=== PATIENT | female | born 1955 | race Caucasian/White ===

== ENCOUNTER 2017-02-19 13:37 | Emergency (ER) | payer MEDICARE, OTHER ==
[~2017-02-19] VITALS: Ht 172.7 cm; Wt 159.2 kg
[~2017-02-19 13:37] MED LIST: ACET-868 PO; ARIP15TA8 PO; BENZ1TAB7 PO; CALC500T13 PO; DIGO250T PO; DIVA250T PO; FLUT1BLS IH; FURO-145 PO; HYDR-552 PO; INSU100V11 SQ; INSU100V7 SQ; MAGN400O6 PO; MAGN400T6 PO; MECL-102 PO; NITR100C6 PO; ONDA-25 PO; POTA40LI14 PO; SENN8.6T6 PO; SPIR50TA PO; ZOLP5TAB7 PO
--- NOTE | 2017-02-19 13:37 | NUR ---
bb cc for eval for cellulitis in perineal area. nad noted. pt aao x4, amb with steady gait. rr even and unlabored. vss. awaiting md for eval.
[2017-02-19] MEDS ORDERED: INSU100V7 SQ (14:10)
[2017-02-19] MEDS ORDERED: TRIA80CR12 TP (14:10)
[2017-02-19] MEDS ORDERED: ALLO300T2 PO (14:10)
[2017-02-19] MEDS ORDERED: IBUP-1955 PO (14:10)
[2017-02-19] MEDS ORDERED: DIVA500T7 PO (14:10)
[2017-02-19] MEDS ORDERED: INSU100V11 SQ (14:10)
[2017-02-19] MEDS ORDERED: BLOO-668 IN (14:10)
[2017-02-19] MEDS ORDERED: MENT113O4 TP (14:10)
--- NOTE | 2017-02-19 14:29 | NUR ---
CALLED , TRANSFERRED CALL TO
[2017-02-19 15:12] VITALS: BP 129/74
--- NOTE | 2017-02-19 15:12 | NUR ---
CALLED [facility] FOR TRANSPORT BACK TO [facility], ETA 1 HOUR
--- NOTE | 2017-02-19 15:42 | NUR ---
NEW ETA FOR [facility]PONSE [id number]
--- NOTE | 2017-02-19 17:45 | NUR ---
Patient discharged to home in stable condition. Written and verbal after care instructions given. Patient verbalizes understanding of instruction. ambulatory with steady gait. vss. no further complaints. leaving via ambulance.
== END 2017-02-19 15:12 | disposition home or self-care (01) ==
LOC: ER 13:39
DX: K61.0 Anal abscess (principal); I10 Essential (primary) hypertension; E11.9 Type 2 diabetes mellitus without complications; F32.9 Major depressive disorder, single episode, unspecified; Z88.8 Allergy status to other drugs, medicaments and biological substances
CPT/HCPCS: 99281; A4606; Z7502; Z7610

== ENCOUNTER 2017-07-14 18:35 | Inpatient (IN) | payer MEDICARE, OTHER ==
[~2017-07-14] VITALS: Ht 198.1 cm; Wt 164.7 kg
[~2017-07-14 18:35] MED LIST changes: +ALLO300T2 PO; +BLOO-668 IN; -DIVA250T PO; +DIVA500T7 PO; -HYDR-552 PO; +IBUP-1955 PO; -MAGN400O6 PO; +MENT113O4 TP; -NITR100C6 PO; -POTA40LI14 PO; +TRIA80CR12 TP
--- NOTE | 2017-07-14 19:00 | NUR ---
61 YO FEMALE BB AMBULANCE FROM [facility]. PT IS ALERT X 3, C/O ABSCESS TO R POPLITEAL AREA X 2 DAYS. PT ASSISTED TO ER BED1. PT PLACED ON PIANO TECHNICIAN. SKIN WARM AND DRY, RR EVEN AND UNLABORED. NOTED LOW SBP. MD NOTIFIED. AWAITING ORDERS FROM PROVIDER, WILL CONTINUE TO MONITOR
[2017-07-14] MEDS ORDERED: DIVA250T6 PO (19:17)
[2017-07-14] MEDS ORDERED: METF10002 PO (19:17)
[2017-07-14] MEDS ORDERED: ASPI-991 PO (19:17)
[2017-07-14] MEDS ORDERED: GEMF600T3 PO (19:17)
[2017-07-14] MEDS ORDERED: GLIP5TAB13 PO (19:17)
[2017-07-14] MEDS ORDERED: VALS40TA4 PO (19:17)
[2017-07-14 19:23] LABS: BASOPHILS # (AUTO) 0.1 /CMM (0.0-0.2); BASOPHILS % (AUTO) 1.4 % (0.0-2.0); EOSINOPHILS # (AUTO) 0.7 /CMM (0.0-0.7); EOSINOPHILS % (AUTO) 7.9 % (0.0-6.0); HEMATOCRIT 36 % (33-45); HEMOGLOBIN 11.8 g/dL (11.5-14.8); LYMPHOCYTES # (AUTO) 1.4 /CMM (0.8-4.8); LYMPHOCYTES % (AUTO) 16.1 % (20.0-44.0); MEAN CORPUSCULAR HEMOGLOBIN 32 PG (26.0-33.0); MEAN CORPUSCULAR HGB CONC 33 g/dl (31.0-36.0); MEAN CORPUSCULAR VOLUME 99 fL (82-100); MONOCYTES # (AUTO) 0.6 /CMM (0.1-1.30); MONOCYTES % (AUTO) 6.8 % (2.0-12.0); NEUTROPHILS # (AUTO) 5.6 /CMM (1.8-8.9); NEUTROPHILS % (AUTO) 67.8 % (43.0-81.0); PLATELET COUNT (AUTO) 249 /CMM (150-450); RED BLOOD CELL COUNT(AUTO) 3.66 MIL/uL (4.0-5.2); WHITE BLOOD COUNT (AUTO) 8.4 K/uL (4.3-11.0)
--- NOTE | 2017-07-14 19:24 | NUR ---
20G RIGHT AC IV STARED, BLOOD SAMPLE OBTAINED AND SENT TO LAB.
[2017-07-14 19:31] LABS: CALCIUM, SERUM 9.1 mg/dL (8.5-10.1); CARBON DIOXIDE 25 mmol/L (21-32); CHLORIDE 97 mmol/L (98-107); CREATININE 1.8 mg/dL (0.6-1.3); GLUCOSE 337 mg/dL (74-106); POTASSIUM 5.8 mmol/L (3.5-5.1); SODIUM SERUM 129 mmol/L (136-145); UREA NITROGEN, BLOOD 51 mg/dL (7-18)
[2017-07-14 19:35] LABS: INR 0.9 (0.87-1.13); PROTHROMBIN TIME 9.3 SECS (9.5-12.7)
[2017-07-14 19:37] LABS: ALANINE AMINOTRANSFERASE 51 U/L (12-78); ALBUMIN 3.2 g/dL (3.4-5.0); ALKALINE PHOSPHATASE 53 U/L (46-116); ASPARTATE AMINOTRANSFERASE 23 U/L (15-37); BILIRUBIN,DIRECT 0.1 mg/dL (0.0-0.2); BILIRUBIN,TOTAL 0.2 mg/dL (0.2-1.0); TOTAL PROTEIN, SERUM 6.5 g/dL (6.4-8.2)
[2017-07-14 19:39] LABS: TROPONIN I < 0.017 ng/mL (0.00-0.056)
[2017-07-14 20:00] VITALS: BP 113/60
[2017-07-14] MEDS ORDERED: IV NS 0.9% 1,000 ML BAG IV ONE (20:00)
[2017-07-14] MEDS ORDERED: VANCOMYCIN 1 GM in IV D5W 250 ML IV ONE (20:00)
[2017-07-14] MEDS ORDERED: INSULIN REGULAR, HUMAN 100 UNIT/ML 10 ML VIAL IV ONE (20:00)
[2017-07-14] MEDS ORDERED: LEVOFLOXACIN 500 MG /D5W 100ML 500 MG/100 ML PIGGYBACK IV ONE (20:00)
--- NOTE | 2017-07-14 20:01 | NUR ---
PATIENT WILL BE ADMITTED INTO [place] [address]-2.
[2017-07-14] MEDS ORDERED: LEVOFLOXACIN 500 MG /D5W 100ML 100 ML IV ONE (20:13)
[2017-07-14] MEDS ORDERED: INSULIN REGULAR, HUMAN 100 UNIT/ML 10 ML VIAL ONE (20:20)
[2017-07-14] MEDS ORDERED: ACETAMINOPHEN 325 MG TABLET PO PRN (20:30)
[2017-07-14] MEDS ORDERED: ZOLPIDEM TARTRATE 5 MG TABLET PO PRN (20:30)
[2017-07-14] MEDS ORDERED: ONDANSETRON HCL/PF 4 MG/2 ML VIAL IVP PRN (20:30)
[2017-07-14] MEDS ORDERED: HYDROCODONE/APAP 10/325MG 1 EA TABLET PO PRN (20:30)
[2017-07-14] MEDS ORDERED: HYDROCODONE/APAP 5/325MG 1 EACH TABLET PO PRN (20:30)
[2017-07-14] MEDS ORDERED: Z GUARD REMEDY 2 OZ OINT TP PRN (20:30)
[2017-07-14] MEDS ORDERED: MAGNESIUM HYDROXIDE 30 ML UDC PO PRN (20:30)
[2017-07-14] MEDS ORDERED: MAG HYDROX/AL HYDROX/SIMETH 30 ML UDC PO PRN (20:30)
--- NOTE | 2017-07-14 20:34 | NUR ---
fluids still infusing on admission. reassessment to be done by kenyetta llanes
--- NOTE | 2017-07-14 20:42 | NUR ---
report given to rn for staci
[2017-07-14] MEDS ORDERED: VANCOMYCIN 1 GM VIAL ONE (20:45)
[2017-07-14 20:48] LABS: APPEARANCE,URINE Clear (CLEAR); BILIRUBIN,URINE Negative (NEGATIVE); BLOOD, URINE Negative Ery/uL (NEGATIVE); COLOR,URINE Yellow (YELLOW); KETONES,URINE Negative (NEGATIVE); LEUKOCYTE ESTERASE ,URINE Negative (NEGATIVE); NITRITE, URINE Negative (NEGATIVE); PH,URINE 5.5 (5.0-8.0); PROTEIN,URINE Negative (NEGATIVE); UGLUCOSE 500 MG/DL mg/dL (NEGATIVE); UROBILINOGEN,URINE 0.2 EU/dL (0.2)
[2017-07-14 20:55] VITALS: BP 113/60
[2017-07-14] MEDS ORDERED: DEXTROSE 50%-WATER 50 ML DISP.SYRIN IV PRN (21:00)
--- NOTE | 2017-07-14 21:03 | NUR ---
transported pt to tele bed without incident
[2017-07-14] MEDS ORDERED: CEFTRIAXONE 1 G in IV D5W 50 ML IV SCH (21:30)
--- NOTE | 2017-07-14 21:55 | NUR ---
RN NOTES ADMITTED A 61 YEARS OLD, FEMALE PT FROM ER WITH PRIMARY DIAGNOSIS OF ACUTE RENAL FAILURE , HYPERKALEMIA AND HYPONATREMIA UNDER RICARDO ENG NP. PT ALERT AND ORIENTED X3, NO SOB, NOT IN DISTRESS, ON ROOM AIR AND TOLERATED WELL. ATTACHED TO TELE MONITOR WHICH READS SINUS RHYTHM WITH HEART RATE AT 98. DENIES ANY PAIN AND DISCOMFORT. SKIN AND BODY ASSESSMENT DONE WITH PICTURES TAKEN AND FILED IN THE CHART. SKIN CARE AND WOUND CARE DONE. IV ACCESS ON RIGHT AC WITH IV BOLUS OF NS INFUSING WELL. WILL INSERT MIDLINE ORDERED. BARRETO CATH INTACT WITH CLEAR URINE OUTPUT NOTED. KEPT PT CLEAN AND DRY. ALL NEEDS ATTENDED. KEPT BED IN THE LOWEST POSITION, LOCKED, SIDE RAILS UP X2, WITH CALL LIGHT WITH IN REACH. ALL ORDERS NOTED AND CARRIED OUT. WILL CONTINUE TO MONITOR PT.
[2017-07-14] MEDS: HEPARIN SODIUM, PORCINE 5000 UNITS/1 ML VIAL SQ SCH (22:15)
[2017-07-14] MEDS: BLOOD SUGAR DIAGNOSTIC 1 EACH STRIP IN SCH (22:17)
--- NOTE | 2017-07-14 22:17 | NUR ---
RN NOTES BLOOD SUGAR CHECKED 267 MG/DL, 6 UNITS REGULAR INSULIN GIVEN SUBCU.
[2017-07-14] MEDS: *INSULIN REGULAR(HUMULIN R)HUM 100 UNIT/ML VIAL SQ PRN (22:20)
[2017-07-14] MEDS: INSULIN DETEMIR 100 UNIT/ML CARTRIDGE SQ SCH (22:21)
[2017-07-14] MEDS ORDERED: CEFTRIAXONE 1 G VIAL ONE (22:22)
[2017-07-14] MEDS: ARIPIPRAZOLE 5 MG TABLET PO SCH (22:29)
[2017-07-15] VITALS: BP 118/64
[2017-07-15] MEDS: IV NS 0.9% 1,000 ML IV PRN ×2 (01:27→17:00)
[2017-07-15 04:00] VITALS: BP 129/59
[2017-07-15] MEDS: BLOOD SUGAR DIAGNOSTIC 1 EACH STRIP IN SCH ×4 (06:31→21:45)
[2017-07-15] MEDS: INSULIN REGULAR, HUMAN 100 UNIT/ML 3 ML VIAL SQ PRN ×2 (06:37→17:18)
--- NOTE | 2017-07-15 06:37 | NUR ---
RN NOTES BLOOD SUGAR CHECKED 226MG/DL, 8 UNITS REGULAR INSULIN GIVEN SUBCU.
[2017-07-15 06:40] LABS: BASOPHILS % (AUTO) 0.5 % (0.0-2.0); EOSINOPHILS # (AUTO) 0.6 /CMM (0.0-0.7); HEMATOCRIT 34 % (33-45); HEMOGLOBIN 11.1 g/dL (11.5-14.8); LYMPHOCYTES # (AUTO) 1.6 /CMM (0.8-4.8); LYMPHOCYTES % (AUTO) 20.3 % (20.0-44.0); MEAN CORPUSCULAR HEMOGLOBIN 33 PG (26.0-33.0); MEAN CORPUSCULAR HGB CONC 33 g/dl (31.0-36.0); MEAN CORPUSCULAR VOLUME 99 fL (82-100); MONOCYTES # (AUTO) 0.6 /CMM (0.1-1.30); MONOCYTES % (AUTO) 7.5 % (2.0-12.0); NEUTROPHILS # (AUTO) 5.2 /CMM (1.8-8.9); NEUTROPHILS % (AUTO) 63.7 % (43.0-81.0); PLATELET COUNT (AUTO) 198 /CMM (150-450); RDW COEFFICIENT OF VARIATION 13.8 (11.5-15.0); WHITE BLOOD COUNT (AUTO) 8.1 K/uL (4.3-11.0)
[2017-07-15 07:00] LABS: THYROID STIMULATING HORMONE 4.301 uIU/mL (0.358-3.74)
[2017-07-15 07:05] LABS: CALCIUM, SERUM 8.4 mg/dL (8.5-10.1); CREATININE 1.3 mg/dL (0.6-1.3); MAGNESIUM 2.2 mg/dL (1.8-2.4); PHOSPHORUS 3.5 mg/dL (2.5-4.9); POTASSIUM 5.3 mmol/L (3.5-5.1)
[2017-07-15 07:11] VITALS: BP 118/55
--- NOTE | 2017-07-15 07:30 | NUR ---
RN NOTES PT ASLEEP IN BED, BREATHING REGULAR AND UNLABORED, NO SIGNS OF DISTRESS AND DISCOMFORT NOTED. VITAL SIGNS STABLE, AFEBRILE. NO COMPLAIN OF PAIN, NO EPISODE OF NAUSEA AND VOMITING. NO DIARRHEA NOTED. ALL DUE MEDS GIVEN. SKIN CARE AND WOUND CARE DONE. OFF HEELS OFFLOADED. TURNED AND REPOSITION Q2H. ALL DUE MEDS GIVEN. ALL NEEDS MET. ENDORSED TO MORNING RN FOR CONTINUITY OF CARE.
--- NOTE | 2017-07-15 07:30 | NUR ---
environmental epidemiologist Initial Notes: Received patient resting in bed. Patient is alert oriented x3. Non-labored breathing noted. No signs of distress. Patient on Telemetry monitoring with sinus rhythm noted. Midline on right upper arm intact and patent. Call light within reach. Bed at lowest/locked position. Will continue to monitor.
[2017-07-15 08:00] VITALS: BP_SYST 110; BP_SYST 118; BP_DIAS 55
[2017-07-15] MEDS: GEMFIBROZIL 600 MG TABLET PO SCH ×3 (09:00→16:56)
[2017-07-15] MEDS ORDERED: ALLOPURINOL 100 MG TABLET PO SCH (09:00)
[2017-07-15] MEDS ORDERED: FUROSEMIDE 20 MG TABLET PO SCH (09:00)
[2017-07-15] MEDS: PANTOPRAZOLE 40 MG TABLET.DR PO SCH (09:17)
[2017-07-15] MEDS: DIVALPROEX SODIUM 250 MG TABLET.DR PO SCH ×3 (09:17→16:40)
[2017-07-15] MEDS: BENZTROPINE MESYLATE (1 MG) 1 MG TABLET PO SCH (09:18)
[2017-07-15] MEDS: MAGNESIUM OXIDE 400 MG TABLET PO SCH ×2 (09:18→16:40)
[2017-07-15] MEDS: ASPIRIN EC 81 MG TABLET.DR PO SCH (09:19)
[2017-07-15] MEDS: FLUTICASONE/VILANTEROL 1 EACH BLST.W.DEV IH SCH (09:20)
[2017-07-15] MEDS: HEPARIN SODIUM, PORCINE 5000 UNITS/1 ML VIAL SQ SCH ×2 (09:39→21:42)
--- NOTE | 2017-07-15 09:45 | NUR ---
cow washer Notes: Patient refused Lopid. Benefits and risks explained to patient. Medication offered to patient 3 times. Patient still refused.
[2017-07-15] MEDS: INSULIN DETEMIR 100 UNIT/ML CARTRIDGE SQ SCH ×2 (10:22→21:44)
--- NOTE | 2017-07-15 11:17 | NUR ---
WOUND CARE CONSULT: PT PRESENTS WITH MULTIPLE SKIN ISSUES, PRESENT ON ADMISSION. BARIMAX BED WITH ETS AIR ORDERED. ALL SKIN PROTECTION MEASURES IN PLACE AND DISCUSSED WITH NURSING STAFF. SPOKE WITH ALLIE CRAMER NP WHO WILL PLACE ALL WOUND ORDERS. DEFER TO SURGICAL TEAM FOR WOUND/SKIN TREATMENT PLAN. WILL SEE PRN. MARTINEZ IN AGREEMENT WITH PLAN OF CARE. Addendum: 07/15/17 at 1119 by REINALDO HUNT WNDNU Amended: Links added.
[2017-07-15] MEDS: DIGOXIN 0.25 MG TABLET PO SCH (12:14)
[2017-07-15] MEDS: *INSULIN REGULAR(HUMULIN R)HUM 100 UNIT/ML VIAL SQ PRN ×2 (12:30→21:45)
--- NOTE | 2017-07-15 13:48 | NUR ---
MS RN notes: Patient status changed to Med Surg per MD orders. Patient's bed changed to [facility] bed. Have waited for bed arrival to verify patient's weight. Bed zeroed and weight was calculated to 370.0 lbs.
[2017-07-15] MEDS: NYSTATIN/TRIAMCIN CREAM 15 GM TUBE TP SCH ×2 (14:11→16:40)
[2017-07-15 16:00] VITALS: BP 113/53
[2017-07-15 17:15] LABS: APPEARANCE,URINE CLEAR (CLEAR); BILIRUBIN,URINE NEGATIVE (NEGATIVE); BLOOD, URINE 1+ Ery/uL (NEGATIVE); COLOR,URINE YELLOW (YELLOW); KETONES,URINE NEGATIVE (NEGATIVE); LEUKOCYTE ESTERASE ,URINE TRACE (NEGATIVE); NITRITE, URINE NEGATIVE (NEGATIVE); PROTEIN,URINE NEGATIVE (NEGATIVE); UGLUCOSE 3+ mg/dL (NEGATIVE); UROBILINOGEN,URINE 0.2 EU/dL (0.2)
[2017-07-15 17:23] LABS: CREATININE, URINE 18.4 MG/DL (30.0-125.0); URINE TOTAL PROTEIN 10.6 mg/dL (0-11.9)
[2017-07-15 17:44] LABS: BACTERIA,URINE Few /HPF (None Seen); SQUAMOUS EPITHELIAL CELL,UR Few /HPF (None Seen); YEAST,URINE Rare /HPF (None Seen)
--- NOTE | 2017-07-15 19:40 | NUR ---
RN Notes: Patient resting in bed. Patient is alert oriented x3. Non-labored breathing noted. No signs of distress. Midline on right upper arm intact and patent. Call light within reach. Bed at lowest/locked position. Will continue to monitor. Endorsed to next shift.
--- NOTE | 2017-07-15 19:42 | NUR ---
MS/RN NOTES RECEIVED PT. LYING IN BED RESTING. PT. IS EASILY AROUSABLE TO NAME. BREATHING EVEN AND UNLABORED ON ROOM AIR. NO SOB, RESPIRATORY DISTRESS OR COMPLAINTS OF PAIN NOTED AT THIS TIME. PT. WITH RIGHT UPPER ARM MIDLINE PRESENT, PATENT AND INTACT ADMINISTERING TO PT. NS @ 75 ML/HR. PT. WITH BARRETO CATHETER PRESENT, PATENT AND INTACT DRAINING CLEAR YELLOW URINE. BED IN LOWEST POSITION, CALL LIGHT WITHIN REACH, SIDE RAILS UP X3, WILL CONTINUE TO MONITOR.
[2017-07-15 19:54] LABS: EOSINOPHIL,URINE Few
[2017-07-15 20:00] VITALS: BP 141/58
[2017-07-15] MEDS: CEFTRIAXONE 1 G in IV D5W 50 ML IV SCH (21:42)
[2017-07-15] MEDS: ARIPIPRAZOLE 5 MG TABLET PO SCH ×2 (21:45→21:56)
[2017-07-16 06:41] LABS: BASOPHILS % (AUTO) 0.5 % (0.0-2.0); EOSINOPHILS # (AUTO) 0.6 /CMM (0.0-0.7); EOSINOPHILS % (AUTO) 8.3 % (0.0-6.0); HEMATOCRIT 35 % (33-45); HEMOGLOBIN 11.6 g/dL (11.5-14.8); LYMPHOCYTES # (AUTO) 1.5 /CMM (0.8-4.8); LYMPHOCYTES % (AUTO) 19.2 % (20.0-44.0); MEAN CORPUSCULAR HEMOGLOBIN 33 PG (26.0-33.0); MEAN CORPUSCULAR HGB CONC 34 g/dl (31.0-36.0); MEAN CORPUSCULAR VOLUME 99 fL (82-100); MONOCYTES # (AUTO) 0.6 /CMM (0.1-1.30); MONOCYTES % (AUTO) 7.5 % (2.0-12.0); NEUTROPHILS % (AUTO) 64.5 % (43.0-81.0); PLATELET COUNT (AUTO) 211 /CMM (150-450); RDW COEFFICIENT OF VARIATION 13.6 (11.5-15.0); RED BLOOD CELL COUNT(AUTO) 3.47 MIL/uL (4.0-5.2); WHITE BLOOD COUNT (AUTO) 7.7 K/uL (4.3-11.0)
[2017-07-16] MEDS: INSULIN REGULAR, HUMAN 100 UNIT/ML 3 ML VIAL SQ PRN ×3 (06:48→17:26)
[2017-07-16] MEDS: BLOOD SUGAR DIAGNOSTIC 1 EACH STRIP IN SCH ×4 (06:49→20:52)
--- NOTE | 2017-07-16 06:56 | NUR ---
MS/RN NOTES PT. IS LYING IN BED. AWAKE, ALERT AND ORIENTED X3. BREATHING EVEN AND UNLABORED ON ROOM AIR. NO SOB, RESPIRATORY DISTRESS OR COMPLAINTS OF PAIN NOTED AT THIS TIME. NO S/S OF HYPO/HYPERGLYCEMIA NOTED. PT. WITH RIGHT UPPER ARM MIDLINE PRESENT, PATENT AND INTACT ADMINISTERING TO PT. NS @ 75 ML/HR. PT. WITH BARRETO CATHETER PRESENT, PATENT AND INTACT. EMPTIED 2400 ML CLEAR YELLOW URINE. ALL PT. NEEDS MET. PT. OFFLOADED. TURNED AND REPOSITIONED Q2H AND NEEDED. BED IN LOWEST POSITION, CALL LIGHT WITHIN REACH, SIDE RAILS UP X3, WILL ENDORSE TO DAYSHIFT NURSE FOR CONTINUITY OF CARE.
--- NOTE | 2017-07-16 07:15 | NUR ---
MS RN OPENING NOTES RECEIVED PT ASLEEP IN BED, EASILY AWAKENS. A/O X3. ABLE TO VERBALIZED NEEDS, NO C/O PAIN OR DISCOMFORTS VOICED AT THIS TIME. ON ROOM AIR, BREATHING EVEN AND UNLABORED. RIGHT UPPER ARM MIDLINE PATENT AND INTACT WITH NS @ 75 ML/HR INFUSING WELL. BARRETO IN PLACE AND ACTIVELY DRAINING CLEAR YELLOW URINE TO BEDSIDE DRAINAGE BAG. BED IN LOWEST POSITION AND LOCKED WITH SIDE-RAILS UP X2. CALL LIGHT WITHIN REACH. WILL MAINTAIN ALL SAFETY MEASURES AND WILL CONTINUE TO MONITOR PT ACCORDINGLY.
[2017-07-16 07:55] LABS: ALBUMIN 2.9 g/dL (3.4-5.0); BILIRUBIN,TOTAL 0.3 mg/dL (0.2-1.0); CALCIUM, SERUM 8.7 mg/dL (8.5-10.1); CREATININE 1.2 mg/dL (0.6-1.3); MAGNESIUM 2.1 mg/dL (1.8-2.4); PHOSPHORUS 3.2 mg/dL (2.5-4.9); POTASSIUM 4.9 mmol/L (3.5-5.1); TOTAL PROTEIN, SERUM 6.3 g/dL (6.4-8.2)
[2017-07-16 08:00] VITALS: BP 134/69
[2017-07-16] MEDS: PANTOPRAZOLE 40 MG TABLET.DR PO SCH (08:15)
[2017-07-16] MEDS: FLUTICASONE/VILANTEROL 1 EACH BLST.W.DEV IH SCH (08:57)
[2017-07-16] MEDS: DIVALPROEX SODIUM 250 MG TABLET.DR PO SCH ×3 (08:59→16:39)
[2017-07-16] MEDS: BENZTROPINE MESYLATE (1 MG) 1 MG TABLET PO SCH (08:59)
[2017-07-16] MEDS: GEMFIBROZIL 600 MG TABLET PO SCH ×2 (08:59→16:39)
[2017-07-16] MEDS: NYSTATIN/TRIAMCIN CREAM 15 GM TUBE TP SCH ×2 (09:00→16:40)
[2017-07-16] MEDS: MAGNESIUM OXIDE 400 MG TABLET PO SCH ×2 (09:00→16:39)
[2017-07-16] MEDS: ASPIRIN EC 81 MG TABLET.DR PO SCH (09:04)
[2017-07-16] MEDS: INSULIN DETEMIR 100 UNIT/ML CARTRIDGE SQ SCH ×2 (09:17→21:08)
[2017-07-16] MEDS: HEPARIN SODIUM, PORCINE 5000 UNITS/1 ML VIAL SQ SCH ×2 (09:20→21:02)
--- NOTE | 2017-07-16 12:03 | NUR ---
RN NOTES SEEN AND EVALUATED BY JARROD SMITH, INSULIN DETEMIR FLEXTOUCH INCREASED FROM 84UNITS TO 95UNITS Q12HRS. WILL CONTINUE TO MONITOR.
[2017-07-16] MEDS: DIGOXIN 0.25 MG TABLET PO SCH (12:09)
[2017-07-16 16:00] VITALS: BP 123/71
[2017-07-16 16:32] VITALS: BP 136/79
--- NOTE | 2017-07-16 18:54 | NUR ---
MS RN CLOSING NOTES PATIENT AWAKE AND RESTING IN BED. A/O X3, SAME ABLE TO COMMUNICATE VERBALLY. ON ROOM AIR, BREATHING EVEN AND UNLABORED. MIDLINE ON RIGHT UPPER ARM PATENT AND INTACT. TORRES IN PLACE AND ACTIVELY DRAINING CLEAR YELLOW URINE TO BEDSIDE DRAINAGE BAG. URINE OUTPUT THIS TOUR WAS 2450 ML, TORRES CARE DONE. HOB KEPT ELEVATED. MAINTAINED BED IN LOWEST POSITION AND LOCKED WITH SIDE-RAILS UP X2. CALL LIGHT WITHIN REACH. ALL SAFETY MEASURES KEPT IN PLACED. ALL NEEDS AND CARE ATTENDED WELL. WILL ENDORSED TO COOLER SERVICE SUPERVISOR NURSE FOR DYLLAN. Addendum: 07/16/17 at 1942 by GERA HOOD RN ms/rn opening notes Patient in hob elevated, alert, orientedx3. able to verbalize needs. no s/s of discomfort. provided fluids. requetsed for some juice. will monitor s/s of hyperglycemia.on torres, w/ urine output , .received reportf from am rn and discussed plan of care, bed in lock position, will continue to monitor.
[2017-07-16 20:00] VITALS: BP_SYST 139; BP_SYST 148; BP_DIAS 48; BP_DIAS 76
[2017-07-16] MEDS: *INSULIN REGULAR(HUMULIN R)HUM 100 UNIT/ML VIAL SQ PRN (20:45)
[2017-07-16] MEDS: CEFTRIAXONE 1 G in IV D5W 50 ML IV SCH (21:14)
[2017-07-16 21:17] VITALS: BP 148/76
[2017-07-16] MEDS: ARIPIPRAZOLE 5 MG TABLET PO SCH (21:25)
--- NOTE | 2017-07-17 06:12 | NUR ---
ms/rn closing notes Patient is alert, awake x3 able to verbalize needs. Attend to needs. Provide wound treatment on left hand cover w/ gauze and tape. No pain observed. No s/s of discomfort. Able to sleep 6 hours.will endorse to am rn for continuity of care.
[2017-07-17] MEDS: BLOOD SUGAR DIAGNOSTIC 1 EACH STRIP IN SCH ×3 (06:37→17:11)
[2017-07-17] MEDS: *INSULIN REGULAR(HUMULIN R)HUM 100 UNIT/ML VIAL SQ PRN (06:45)
[2017-07-17 07:17] LABS: BASOPHILS % (AUTO) 0.2 % (0.0-2.0); EOSINOPHILS # (AUTO) 0.6 /CMM (0.0-0.7); EOSINOPHILS % (AUTO) 7.8 % (0.0-6.0); HEMATOCRIT 34 % (33-45); HEMOGLOBIN 11.7 g/dL (11.5-14.8); LYMPHOCYTES # (AUTO) 1.2 /CMM (0.8-4.8); LYMPHOCYTES % (AUTO) 14.7 % (20.0-44.0); MEAN CORPUSCULAR HEMOGLOBIN 34 PG (26.0-33.0); MEAN CORPUSCULAR HGB CONC 34 g/dl (31.0-36.0); MEAN CORPUSCULAR VOLUME 99 fL (82-100); MONOCYTES # (AUTO) 0.6 /CMM (0.1-1.30); NEUTROPHILS # (AUTO) 5.7 /CMM (1.8-8.9); NEUTROPHILS % (AUTO) 70.3 % (43.0-81.0); PLATELET COUNT (AUTO) 213 /CMM (150-450); RDW COEFFICIENT OF VARIATION 13.8 (11.5-15.0); RED BLOOD CELL COUNT(AUTO) 3.49 MIL/uL (4.0-5.2); WHITE BLOOD COUNT (AUTO) 8.1 K/uL (4.3-11.0)
--- NOTE | 2017-07-17 07:18 | NUR ---
MS RN OPENING NOTES PATIENT RECEIVED AWAKE IN BED IN NO ACUTE SIGNS OF DISTRESS. A/O X3, NO C/O PAIN OR DISCOMFORTS VOICED AT THIS TIME. ON ROOM AIR, BREATHING EVEN AND UNLABORED. RIGHT UPPER ARM MIDLINE PATENT AND INTACT. BARRETO IN PLACE WITH POSITIVE YELLOW URINE NOTED AT BEDSIDE DRAINAGE BAG. BED IN LOWEST POSITION AND LOCKED WITH SIDE-RAILS UP X2. CALL LIGHT WITHIN REACH OF PT. WILL MAINTAIN ALL SAFETY MEASURES AND WILL CONTINUE TO MONITOR PT ACCORDINGLY.
[2017-07-17 07:58] LABS: CALCIUM, SERUM 8.9 mg/dL (8.5-10.1); CREATININE 1.1 mg/dL (0.6-1.3); MAGNESIUM 1.8 mg/dL (1.8-2.4); PHOSPHORUS 3.4 mg/dL (2.5-4.9); POTASSIUM 4.8 mmol/L (3.5-5.1)
[2017-07-17 08:00] VITALS: BP 129/68
[2017-07-17] MEDS: ASPIRIN EC 81 MG TABLET.DR PO SCH (08:29)
[2017-07-17] MEDS: BENZTROPINE MESYLATE (1 MG) 1 MG TABLET PO SCH (08:29)
[2017-07-17] MEDS: GEMFIBROZIL 600 MG TABLET PO SCH ×2 (08:29→16:11)
[2017-07-17] MEDS: DIVALPROEX SODIUM 250 MG TABLET.DR PO SCH ×3 (08:29→16:11)
[2017-07-17] MEDS: MAGNESIUM OXIDE 400 MG TABLET PO SCH ×2 (08:29→16:11)
[2017-07-17] MEDS: PANTOPRAZOLE 40 MG TABLET.DR PO SCH (08:29)
[2017-07-17] MEDS: NYSTATIN/TRIAMCIN CREAM 15 GM TUBE TP SCH ×2 (08:31→16:11)
[2017-07-17] MEDS: FLUTICASONE/VILANTEROL 1 EACH BLST.W.DEV IH SCH (08:33)
[2017-07-17] MEDS: HEPARIN SODIUM, PORCINE 5000 UNITS/1 ML VIAL SQ SCH (08:37)
[2017-07-17] MEDS: INSULIN DETEMIR 100 UNIT/ML CARTRIDGE SQ SCH (09:16)
[2017-07-17] MEDS ORDERED: LEVO750T21 PO (09:47)
[2017-07-17] MEDS ORDERED: INSU3INS6 SUBCUT (09:47)
[2017-07-17] MEDS ORDERED: CEFT1FRO2 IV (09:53)
--- NOTE | 2017-07-17 11:35 | NUR ---
RN NOTES PATIENT FOR DISCHARGE THIS AFTERNOON TO [facility]. REPORTS GIVEN TO THE EVALUATION ASSISTANT CARMEN AND REQUESTED TO FAX H AND P AND RESULTS OF MRSA AND C-DIFF RESULTS.
[2017-07-17] MEDS: DIGOXIN 0.25 MG TABLET PO SCH (12:02)
[2017-07-17] MEDS: INSULIN REGULAR, HUMAN 100 UNIT/ML 3 ML VIAL SQ PRN ×2 (12:14→17:12)
[2017-07-17] MEDS ORDERED: SULF1TAB48 PO (14:14)
[2017-07-17 16:00] VITALS: BP 130/70
--- NOTE | 2017-07-17 18:03 | NUR ---
SOLUTION ADVISOR NOTES PATIENT DISCHARGED TO [facility] LIVING IN STABLE CONDITION. LEFT UNIT @ 1800H ACCOMPANIED BY 4 EMT'S VIA [employer]. ALERT AND ORIENTED X 3 WITH NO C/O PAIN OR DISCOMFORTS DURING DISCHARGE. BARERTO CATHETER AND GUSTAVO MIDLINE REMOVED. V.S CHECKED AND RECORDED. BELONGINGS CHECKED, COUNTED AND SIGNED FORM. PHOTOS OF SKIN TAKEN AND FILED ON CHART. HEALTH TEACHINGS GIVEN AND VERBALIZED UNDERSTANDING. MD AND CHARGE NURSE AWARE OF DISCHARGE.
== END 2017-07-17 17:58 | DRG 682 ==
LOC: ER 18:36 → TELE 20:20 → MED 07-15 10:35
PROVIDERS: ADMIT Nurse Practitioner Acute Care; ATTEND Nurse Practitioner Acute Care
PROC: 05H533Z Insertion of Infusion Device into Right Subclavian Vein, Percutaneous Approach (ICD-10-PCS; principal; 2017-07-14)
DX: N17.0 Acute kidney failure with tubular necrosis (principal); I50.33 Acute on chronic diastolic (congestive) heart failure; J96.00 Acute respiratory failure, unspecified whether with hypoxia or hypercapnia; E44.0 Moderate protein-calorie malnutrition; E87.2 Acidosis; L03.115 Cellulitis of right lower limb; E11.40 Type 2 diabetes mellitus with diabetic neuropathy, unspecified; E11.65 Type 2 diabetes mellitus with hyperglycemia; Z68.43 Body mass index [BMI] 50.0-59.9, adult; N39.0 Urinary tract infection, site not specified; E87.1 Hypo-osmolality and hyponatremia; J98.11 Atelectasis; I50.32 Chronic diastolic (congestive) heart failure; E86.1 Hypovolemia; E66.01 Morbid (severe) obesity due to excess calories; B96.20 Unspecified Escherichia coli [E. coli] as the cause of diseases classified elsewhere; E78.1 Pure hyperglyceridemia; E78.5 Hyperlipidemia, unspecified; E87.5 Hyperkalemia; F31.9 Bipolar disorder, unspecified; I11.0 Hypertensive heart disease with heart failure; I70.0 Atherosclerosis of aorta; J44.9 Chronic obstructive pulmonary disease, unspecified; M10.9 Gout, unspecified; Z79.4 Long term (current) use of insulin; Z79.82 Long term (current) use of aspirin; Z79.84 Long term (current) use of oral hypoglycemic drugs; Z79.899 Other long term (current) drug therapy; Z82.49 Family history of ischemic heart disease and other diseases of the circulatory system; Z83.3 Family history of diabetes mellitus; Z85.42 Personal history of malignant neoplasm of other parts of uterus; Z87.891 Personal history of nicotine dependence; Z90.710 Acquired absence of both cervix and uterus; Z91.19 Patient's noncompliance with other medical treatment and regimen; Z88.1 Allergy status to other antibiotic agents; I35.0 Nonrheumatic aortic (valve) stenosis
CPT/HCPCS: 36415; 71010-TC; 80048-TC; 80053-TC; 80061-TC; 80076-TC; 80162-TC; 81000-TC; 82570-TC; 82962-TC; 83605-TC; 83735-TC; 84100-TC; 84155-TC; 84300-TC; 84443-TC; 84484-TC; 85025-TC; 85730-TC; 87040-TC; 87081-TC; 87086-TC; 87186-TC; 93307-TC; 93970-TC; 97110-TC; 97530-TC; A4606; A6402; A6403; J0696; J1644; J1815; J1956; J3370; J7030; J7060; Z7610

== ENCOUNTER 2017-10-05 19:10 | Emergency (ER) | payer MEDICARE, OTHER ==
[~2017-10-05] VITALS: Ht 167.6 cm; Wt 163.3 kg
[2017-10-05 19:10] VITALS: BP 125/58
[~2017-10-05 19:10] MED LIST changes: -ACET-868 PO; +ASPI-991 PO; -BLOO-668 IN; -CALC500T13 PO; +DIVA250T6 PO; -DIVA500T7 PO; +GEMF600T3 PO; +GLIP5TAB13 PO; -IBUP-1955 PO; -INSU100V11 SQ; -INSU100V7 SQ; +INSU3INS6 SUBCUT; -MECL-102 PO; -MENT113O4 TP; -ONDA-25 PO; -SENN8.6T6 PO; +SULF1TAB48 PO; -TRIA80CR12 TP; +VALS40TA4 PO; -ZOLP5TAB7 PO
--- NOTE | 2017-10-05 19:50 | NUR ---
RADIOLOGY AT BEDSIDE FOR L HAND XRAY.
[2017-10-05] MEDS ORDERED: CLINDAMYCIN 900 MG/6 ML VIAL ONE (19:51)
[2017-10-05] MEDS ORDERED: CLINDAMYCIN 900 MG/6 ML VIAL IM ONE (20:00)
--- NOTE | 2017-10-05 20:53 | NUR ---
CALLED [facility] FOR TRANSPORT , ETA OF 45 MINS WAS GIVEN.
--- NOTE | 2017-10-05 20:54 | NUR ---
TRIP # [id number] SPOKE WITH JOEL
== END 2017-10-05 22:28 | disposition home or self-care (01) ==
LOC: ER 19:12
DX: S61.213A Laceration without foreign body of left middle finger without damage to nail, initial encounter (principal); E11.9 Type 2 diabetes mellitus without complications; I10 Essential (primary) hypertension; Z79.4 Long term (current) use of insulin; Z79.82 Long term (current) use of aspirin; Z85.42 Personal history of malignant neoplasm of other parts of uterus; Z90.710 Acquired absence of both cervix and uterus; Z90.49 Acquired absence of other specified parts of digestive tract; Z98.890 Other specified postprocedural states; W18.39XA Other fall on same level, initial encounter; Y93.89 Activity, other specified; Y92.89 Other specified places as the place of occurrence of the external cause; Y99.8 Other external cause status
CPT/HCPCS: 73120; 96372; 99284; A4606; J3490; Z7610

== ENCOUNTER 2017-10-08 20:01 | Inpatient (IN) | payer MEDICARE, OTHER ==
[~2017-10-08] VITALS: Ht 167.6 cm; Wt 159.7 kg
[2017-10-08] MEDS ORDERED: IV NS 0.9% 1,000 ML BAG IV ONE ×2 (20:30→21:30)
[2017-10-08] MEDS ORDERED: ONDANSETRON HCL/PF 4 MG/2 ML VIAL IVP ONE (20:30)
[2017-10-08] MEDS ORDERED: ONDANSETRON HCL/PF 4 MG/2 ML VIAL ONE (20:34)
--- NOTE | 2017-10-08 20:35 | NUR ---
PT PRESENTS TO ER C/O N/V/ABD PAIN X3 DAYS EACH DAY AFTER TAKING PO ABX, PER PT D/T "INFECTIONS ON MY FINGERS" S/P RING REMOVAL 3 DAYS AGO. RESP EVEN UNLABORED. SKIN WARM NONDIAPHORETIC. IN ER BED 07. NAD NOTED.
[2017-10-08 20:42] LABS: CALCIUM, SERUM 9.5 mg/dL (8.5-10.1); CREATININE 2.3 mg/dL (0.6-1.3); POTASSIUM 5.2 mmol/L (3.5-5.1)
[2017-10-08 20:45] LABS: BASOPHILS % (AUTO) 0.2 % (0.0-2.0); EOSINOPHILS # (AUTO) 0.8 /CMM (0.0-0.7); EOSINOPHILS % (AUTO) 8.6 % (0.0-6.0); HEMATOCRIT 36 % (33-45); HEMOGLOBIN 12.1 g/dL (11.5-14.8); LYMPHOCYTES # (AUTO) 1.3 /CMM (0.8-4.8); LYMPHOCYTES % (AUTO) 13.5 % (20.0-44.0); MEAN CORPUSCULAR HEMOGLOBIN 33 PG (26.0-33.0); MEAN CORPUSCULAR HGB CONC 33 g/dl (31.0-36.0); MEAN CORPUSCULAR VOLUME 98 fL (82-100); MONOCYTES # (AUTO) 0.6 /CMM (0.1-1.30); MONOCYTES % (AUTO) 6.2 % (2.0-12.0); NEUTROPHILS # (AUTO) 6.9 /CMM (1.8-8.9); NEUTROPHILS % (AUTO) 71.5 % (43.0-81.0); PLATELET COUNT (AUTO) 240 /CMM (150-450); RDW COEFFICIENT OF VARIATION 13.3 (11.5-15.0); RED BLOOD CELL COUNT(AUTO) 3.69 MIL/uL (4.0-5.2); WHITE BLOOD COUNT (AUTO) 9.6 K/uL (4.3-11.0)
[2017-10-08 20:47] LABS: ALBUMIN 3.2 g/dL (3.4-5.0); BILIRUBIN,DIRECT 0.1 mg/dL (0.0-0.2); BILIRUBIN,TOTAL 0.3 mg/dL (0.2-1.0); TOTAL PROTEIN, SERUM 6.6 g/dL (6.4-8.2)
--- NOTE | 2017-10-08 21:22 | NUR ---
MS 321-2
--- NOTE | 2017-10-08 21:50 | NUR ---
REPORT GIVEN TO HOWIE ROBERSON. PT TRANSPORTED TO [facility] IN STABLE CONDITION WITH IV BOLUS ONGOING.
[2017-10-08 22:00] VITALS: BP 106/43
--- NOTE | 2017-10-08 22:00 | NUR ---
MS RN NOTE: RECEIVED PATIENT FROM ER, NO ACUTE DISTRESS NOTED. BREATHING EVEN AND UNLABORED, NO SOB NOTED. IV TO LAC IN PLACE, RECEIVED PATIENT WITH NS BOLUS INFUSING, TO FINISH ORDERED. ORIENTED PATIENT TO ROOM AND USE OF CALL LIGHT. BED LOCKED AND IN LOWEST POSITION, CALL LIGHT IN REACH. WILL CONTINUE TO MONITOR.
[2017-10-09] MEDS ORDERED: ZOLPIDEM TARTRATE 5 MG TABLET PO PRN
[2017-10-09] MEDS ORDERED: DEXTROSE 50%-WATER 50 ML DISP.SYRIN IV PRN
[2017-10-09] MEDS ORDERED: ACETAMINOPHEN 325 MG TABLET PO PRN
[2017-10-09] MEDS ORDERED: ONDANSETRON HCL/PF 4 MG/2 ML VIAL IVP PRN
[2017-10-09] MEDS ORDERED: ENOXAPARIN SODIUM 40 MG/0.4 ML DISP.SYRIN SQ SCH
[2017-10-09] MEDS ORDERED: ENOXAPARIN SODIUM 40 MG/0.4 ML DISP.SYRIN SQ ONE (00:28)
[2017-10-09] MEDS: IV NS 0.9% 1,000 ML IV PRN (03:29)
--- NOTE | 2017-10-09 06:15 | NUR ---
MS RN NOTE: PATIENT RESTING IN BED, NO ACUTE DISTRESS NOTED. BREATHING EVEN AND UNLABORED, NO SOB NOTED. IV TO LAC IN PLACE, INFUSING NS AT 75 ML/HR. PATIENT BLOOD SUGAR LEVEL 142 MG/DL, PATIENT TO RECEIVE 2 UNITS OF INSULIN PER SLIDING SCALE, NO S/S OF HYPERGLYCEMIA NOTED. BED LOCKED AND IN LOWEST POSITION, CALL LIGHT IN REACH. WILL ENDORSE TO DAY NURSE TO CONTINUE TO WITH PLAN OF CARE.
[2017-10-09] MEDS: INSULIN REGULAR, HUMAN 100 UNIT/ML 3 ML VIAL SQ PRN ×3 (06:29→17:11)
[2017-10-09] MEDS: BLOOD SUGAR DIAGNOSTIC 1 EACH STRIP IN SCH ×4 (06:30→21:33)
--- NOTE | 2017-10-09 07:15 | NUR ---
RN NOTES PT IS RESTING UP IN BED COMFORTABLY. PT ON RA, RESPIRATIONS ARE EVEN AND UNLABORED. IV ON RAC INTACT AND PATENT, RUNNING NS @ 75 ML/HR. SAFETY MEASURES ARE IN PLACE, CALL LIGHT IS IN REACH. WILL CONTINUE TO MONITOR.
[2017-10-09 07:54] LABS: BASOPHILS % (AUTO) 0.3 % (0.0-2.0); EOSINOPHILS # (AUTO) 0.8 /CMM (0.0-0.7); HEMATOCRIT 33 % (33-45); HEMOGLOBIN 11.2 g/dL (11.5-14.8); LYMPHOCYTES # (AUTO) 1.2 /CMM (0.8-4.8); LYMPHOCYTES % (AUTO) 17.9 % (20.0-44.0); MEAN CORPUSCULAR HEMOGLOBIN 33 PG (26.0-33.0); MEAN CORPUSCULAR HGB CONC 34 g/dl (31.0-36.0); MEAN CORPUSCULAR VOLUME 98 fL (82-100); MONOCYTES # (AUTO) 0.5 /CMM (0.1-1.30); MONOCYTES % (AUTO) 7.9 % (2.0-12.0); NEUTROPHILS # (AUTO) 4.3 /CMM (1.8-8.9); NEUTROPHILS % (AUTO) 62.9 % (43.0-81.0); PLATELET COUNT (AUTO) 208 /CMM (150-450); RDW COEFFICIENT OF VARIATION 13.9 (11.5-15.0); WHITE BLOOD COUNT (AUTO) 6.9 K/uL (4.3-11.0)
[2017-10-09 08:00] VITALS: BP 103/53
[2017-10-09 08:10] LABS: ALBUMIN 2.8 g/dL (3.4-5.0); BILIRUBIN,TOTAL 0.3 mg/dL (0.2-1.0); CREATININE 2.1 mg/dL (0.6-1.3); MAGNESIUM 2.6 mg/dL (1.8-2.4); PHOSPHORUS 4.4 mg/dL (2.5-4.9)
[2017-10-09 08:18] LABS: THYROID STIMULATING HORMONE 3.88 uIU/mL (0.358-3.74)
[2017-10-09] MEDS ORDERED: SPIRONOLACTONE 25 MG TABLET PO SCH (09:00)
[2017-10-09] MEDS: FLUTICASONE/VILANTEROL 1 EACH BLST.W.DEV IH SCH (09:00)
[2017-10-09] MEDS: SPIRONOLACTONE 25 MG TABLET PO SCH (09:00)
[2017-10-09] MEDS: DIVALPROEX SODIUM 250 MG TABLET.DR PO SCH ×3 (09:00→16:56)
[2017-10-09] MEDS: GEMFIBROZIL 600 MG TABLET PO SCH ×2 (09:00→16:56)
[2017-10-09] MEDS: VALSARTAN 40 MG TABLET PO SCH ×2 (09:00→17:00)
[2017-10-09] MEDS: FUROSEMIDE 20 MG TABLET PO SCH (09:19)
[2017-10-09] MEDS: MAGNESIUM OXIDE 400 MG TABLET PO SCH ×2 (09:19→16:56)
[2017-10-09] MEDS: ALLOPURINOL 100 MG TABLET PO SCH (09:19)
[2017-10-09] MEDS: ASPIRIN EC 81 MG TABLET.DR PO SCH (09:19)
[2017-10-09] MEDS: glipiZIDE 5 MG TABLET PO SCH (09:19)
[2017-10-09] MEDS: BENZTROPINE MESYLATE (1 MG) 1 MG TABLET PO SCH (09:20)
--- NOTE | 2017-10-09 11:03 | NUR ---
WOUND CARE CONSULT: PT PRESENTS WITH LEFT THIGH STAGE 2 ULCERS, PRESENT ON ADMISSION WELL REDNESS WITH SWELLING TO FINGERS ON LEFT HAND (3RD AND 4TH). RECOMMENDATIONS MADE FOR SKIN PROTECTION. DISCUSSED WITH NURSING STAFF. PT ADAMANTLY REFUSED ANY TYPE OF LOW AIRLOSS OR BARIATRIC BED. PT AMBULATES TO COMMODE WITH ASSISTANCE. CURRENT FRANKLIN SCORE IS 16. WILL SEE PRN. MARTINEZ IN AGREEMENT WITH PLAN OF CARE. Addendum: 10/09/17 at 1105 by REINALDO HUNT WNDNU Amended: Links added.
[2017-10-09] MEDS: DIGOXIN 0.25 MG TABLET PO SCH (12:14)
[2017-10-09] MEDS: Z GUARD REMEDY 2 OZ OINT TP PRN (12:14)
[2017-10-09] MEDS: Z GUARD REMEDY 2 OZ OINT TP SCH (12:21)
[2017-10-09] MEDS: MUPIROCIN OINT 2% 22 GM TUBE TP SCH ×2 (15:18→23:43)
[2017-10-09] MEDS: HYDROGEL DRESSING 90 GM TUBE TP SCH (15:18)
[2017-10-09] MEDS: NYSTATIN CREAM 15 GM TUBE TP SCH ×2 (15:18→17:09)
[2017-10-09 16:00] VITALS: BP 121/69
--- NOTE | 2017-10-09 18:34 | NUR ---
RN NOTES PT IS IN BED, SLEEPING COMFORTABLY. PT ON RA, RESPIRATIONS ARE EVEN AND UNLABORED. IV ON RFA INTACT AND PATENT, RUNNING NS @ 75ML/HR. LAST 1730 ACCUCHECK WAS 191, 4 UNITS OF INSULIN GIVEN PER ORDER. ALL PT NEEDS MET, WOUND CARE PROVIDED. SAFETY MEASURES ARE IN PLACE, CALL LIGHT IS IN REACH. WILL ENDORSE TO PR INTERN RN FOR CONTINUITY OF CARE.
--- NOTE | 2017-10-09 19:30 | NUR ---
MS RN OPENING NOTES RECEIVED PATIENT SITTING IN BED, A & O X 3. NO C/O SOB, RESP EVEN & NONLABORED. NO C/O PAIN AT THIS TIME. CONTINENT/BSC. IV ACCESS TO RAC RUNNING WITH NS @ 75 ML/HR, INTACT PATENT. PT NOTED TO BE KEEPING HER ARM BENT, REMINDED HER TO KEEP HER ARM STRAIGHT MUCH POSSIBLE TO PREVENT OCCLUSION OF THE IV LINE. PT VERBALIZED UNDERSTANDING. SAFETY MEASURES IN PLACE. BED IN LOW LOCKED POSITION. CALL LIGHT WITHIN REACH. WILL CONTINUE TO OBSERVE.
[2017-10-09 20:00] VITALS: BP 121/61
[2017-10-09] MEDS: ENOXAPARIN SODIUM 30 MG/0.3 ML DISP.SYRIN SQ SCH (21:34)
[2017-10-09] MEDS: INSULIN DETEMIR 100 UNIT/ML CARTRIDGE SQ SCH (21:35)
[2017-10-09] MEDS: *INSULIN REGULAR(HUMULIN R)HUM 100 UNIT/ML VIAL SQ PRN (21:40)
[2017-10-09] MEDS: ARIPIPRAZOLE 5 MG TABLET PO SCH (21:43)
--- NOTE | 2017-10-10 04:32 | NUR ---
MS RN NOTES PATIENT SLEEPING INTERMITTENTLY, AWAKE MOST OF THE TIME. REFUSED TO HAVE IV FLUIDS LINE CONNECTED TO HER ARM FOR A WHILE, STATED SHE DOESN'T NEED IT SINCE SHE IS DRINKING GOOD AMOUNT OF WATER. EXPLAINED TO HER ABOUT BENEFITS OF IV FLUIDS PER MD ORDERS, STILL REFUSED FOR ABOUT 2 HOURS & THEN AGREED TO CONTINUE THE IV FLUIDS AGAIN.
[2017-10-10] MEDS: IV NS 0.9% 1,000 ML IV PRN ×2 (05:56→22:46)
--- NOTE | 2017-10-10 06:28 | NUR ---
MS RN CLOSING NOTES PATIENT SLEPT LESS AT NIGHT, UP & DOWN IN BED EVERY 15-20 MINUTES. USED BSC MULTIPLE TIMES TO VOID WITH ASSISTANCE. A & O X 3. NO C/O PAIN, NO N/V, NO S/S OF INFECTION NOTED. SKIN DRESSING DONE. IV ACCESS TO RAC, RUNNING WITH NS @ 75 ML/HR, INTACT PATENT. ASSISTED WITH ADL CARE. TAKES GOOD PO INTAKE. ALL NEEDS MET. BED IN LOW LOCKED POSITION. CALL LIGHT WITHIN REACH. WILL ENDORSE TO AM RN FOR CONTINUITY OF CARE.
[2017-10-10] MEDS: BLOOD SUGAR DIAGNOSTIC 1 EACH STRIP IN SCH ×4 (07:18→21:14)
[2017-10-10] MEDS: INSULIN REGULAR, HUMAN 100 UNIT/ML 3 ML VIAL SQ PRN ×2 (07:20→17:15)
[2017-10-10 07:41] LABS: BASOPHILS % (AUTO) 0.7 % (0.0-2.0); EOSINOPHILS # (AUTO) 0.5 /CMM (0.0-0.7); EOSINOPHILS % (AUTO) 8.5 % (0.0-6.0); HEMATOCRIT 35 % (33-45); HEMOGLOBIN 11.5 g/dL (11.5-14.8); LYMPHOCYTES # (AUTO) 1.2 /CMM (0.8-4.8); LYMPHOCYTES % (AUTO) 19.3 % (20.0-44.0); MEAN CORPUSCULAR HEMOGLOBIN 32 PG (26.0-33.0); MEAN CORPUSCULAR HGB CONC 33 g/dl (31.0-36.0); MEAN CORPUSCULAR VOLUME 98 fL (82-100); MONOCYTES # (AUTO) 0.6 /CMM (0.1-1.30); MONOCYTES % (AUTO) 9.7 % (2.0-12.0); NEUTROPHILS % (AUTO) 61.8 % (43.0-81.0); PLATELET COUNT (AUTO) 207 /CMM (150-450); RDW COEFFICIENT OF VARIATION 14.3 (11.5-15.0); RED BLOOD CELL COUNT(AUTO) 3.55 MIL/uL (4.0-5.2); WHITE BLOOD COUNT (AUTO) 6.4 K/uL (4.3-11.0)
[2017-10-10 08:00] VITALS: BP 151/71
[2017-10-10 08:04] LABS: CALCIUM, SERUM 8.8 mg/dL (8.5-10.1); CREATININE 1.5 mg/dL (0.6-1.3); MAGNESIUM 2.1 mg/dL (1.8-2.4); PHOSPHORUS 2.8 mg/dL (2.5-4.9); POTASSIUM 4.8 mmol/L (3.5-5.1)
--- NOTE | 2017-10-10 08:05 | NUR ---
MS/RN OPENING NOTE PATIENT RECEIVED IN BED IN STABLE CONDITION. A/O X 3. NO SIGNS OF ACUTE DISTRESS. NO COMPLAIN OF PAIN OR DISCOMFORT. ALL NEEDS ATTENDED TO. CALL LIGHT WITHIN REACH. WILL CONTINUE TO MONITOR TO ENSURE SAFETY.
--- NOTE | 2017-10-10 08:20 | NUR ---
RN NOTES RECEIVED PT. PT IS STABLE AND EATING BREAKFAST IN BED. A/OX4. NO S/S OF RESPIRATORY DISTRESS. PT DOES NOT HAVE ANY C/O PAIN. IV ACCESS LOCATED ON RIGHT AC, 20G RUNNING NS AT 75 ML/HR. PT HAS REQUESTED FOR CHANGES TO DIETARY ORDER STATING "THIS BREAKFAST ISNT ENOUGH FOR ME". SAFETY MEASURES IN PLACE, CALL LIGHT WITHIN REACH. WILL CONTINUE TO MONITOR.
[2017-10-10] MEDS: glipiZIDE 5 MG TABLET PO SCH (08:57)
[2017-10-10] MEDS: ALLOPURINOL 100 MG TABLET PO SCH (08:57)
[2017-10-10] MEDS: ASPIRIN EC 81 MG TABLET.DR PO SCH (08:57)
[2017-10-10] MEDS: SPIRONOLACTONE 25 MG TABLET PO SCH (08:57)
[2017-10-10] MEDS: GEMFIBROZIL 600 MG TABLET PO SCH ×2 (08:57→17:00)
[2017-10-10] MEDS: FUROSEMIDE 20 MG TABLET PO SCH (08:57)
[2017-10-10] MEDS: VIT B CMPLX 3/FA/VIT C/BIOTIN 1 TAB TABLET PO SCH (08:57)
[2017-10-10] MEDS: BENZTROPINE MESYLATE (1 MG) 1 MG TABLET PO SCH (08:58)
[2017-10-10] MEDS: MAGNESIUM OXIDE 400 MG TABLET PO SCH ×2 (08:58→17:14)
[2017-10-10] MEDS: DIVALPROEX SODIUM 250 MG TABLET.DR PO SCH ×3 (08:58→17:00)
[2017-10-10] MEDS: ASCORBIC ACID 500 MG TABLET PO SCH (08:58)
[2017-10-10] MEDS: VALSARTAN 40 MG TABLET PO SCH ×2 (09:00→17:00)
[2017-10-10] MEDS: Z GUARD REMEDY 2 OZ OINT TP SCH (09:18)
[2017-10-10] MEDS: NYSTATIN CREAM 15 GM TUBE TP SCH ×2 (09:18→17:19)
[2017-10-10] MEDS: FLUTICASONE/VILANTEROL 1 EACH BLST.W.DEV IH SCH (09:43)
[2017-10-10] MEDS: DIGOXIN 0.25 MG TABLET PO SCH (12:05)
[2017-10-10] MEDS: MUPIROCIN OINT 2% 22 GM TUBE TP SCH (12:08)
[2017-10-10] MEDS: *INSULIN REGULAR(HUMULIN R)HUM 100 UNIT/ML VIAL SQ PRN ×2 (12:09→21:16)
[2017-10-10] MEDS: LEVOTHYROXINE SODIUM 50 MCG TABLET PO SCH (13:30)
[2017-10-10 14:49] LABS: CALCIUM, SERUM 9.5 mg/dL (8.5-10.1); CREATININE 1.5 mg/dL (0.6-1.3); POTASSIUM 5.2 mmol/L (3.5-5.1)
[2017-10-10 16:19] VITALS: BP 143/69
--- NOTE | 2017-10-10 16:27 | NUR ---
RN NOTES WOUND CARE PERFORMED ON POSTERIOR LEFT THIGH, LEFT HAND 3RD & 4TH FINGERS, ABDOMINAL/BACK FOLDS.
--- NOTE | 2017-10-10 18:35 | NUR ---
RN CLOSING NOTES PT IS SITTING ON THE SIDE OF THE BED, RELAXED, DOES NOT APPEAR TO BE IN DISTRESS. NO C/O PAIN AT THIS TIME. PT ONLY REQUEST IS FOR MORE FOOD, HOWEVER CCHO [address] PER MD ORDER, CDIFF ASSAY ORDERED, AWAITING PT BM TO COLLECT SAMPLE. ALL PT NEEDS ANTICIPATED AND MET. SAFETY MEASURES IN PLACE, CALL LIGHT WITHIN REACH. WILL ENDORSE TO ELIGIBILITY SUPERVISOR FOR DYLLAN.
--- NOTE | 2017-10-10 19:40 | NUR ---
RN INITIAL NOTES: RECEIVED REPORT FROM DAY RN, PT SITTING IN THE BED, A/O X3, ON RA RESPIRATION EVEN AND UNLABORED, DENIES ANY PAIN OR DISCOMFORT AT THIS TIME, DENIES ANY N/V, PT BEEN REQUESTING TO GET ANOTHER SET OF FOOD TRAY, EXPLAINED TO THE PT THAT KITCHEN IS CLOSED AND RN CAN ONLY OFFER SNACK, HOWEVER [facility], AND EDUCATE PT REGARDING IMPORTANCE OF DIETARY COMPLIANCE, BUT PT BEEN NON COMPLIANT PER REPORT, AND PT NON STOP EATING, THAT'S WHY HER BLOOD SUGAR IS HIGH DESPITE GIVING INSULIN COVERAGE, MD AWARE. IV ACCESS PATENT AND FLUSHING WELL, ON HL, PT REFUSED TO BE CONNECTED TO IVF AT THIS TIME, DESPITE GIVING EDUCATION. SAFETY PRECAUTIONS FOR FALL INITIATED CALL LIGHT IN REACH, WILL CONTINUE TO MONITOR
[2017-10-10 20:00] VITALS: BP 129/68
--- NOTE | 2017-10-10 21:22 | NUR ---
BLOOD SUGAR: PERFORMED ACCU CHECK AND REVEAL 402, 10 UNITS OF INSULIN GIVEN TO THE PT PER SLIDING SCALE, AND PER SCALE PROTOCOL TO CALL MD, CONTACTED SED HIGH SCHOOL TEACHER [facility], AWAITING FOR CALL BACK, PT BEEN EATING NON STOP AND VERY NON COMPLIANT
[2017-10-10] MEDS ORDERED: INSULIN REGULAR, HUMAN 100 UNIT/ML 10 ML VIAL SQ ONE (21:30)
[2017-10-10] MEDS: INSULIN DETEMIR 100 UNIT/ML CARTRIDGE SQ SCH (21:36)
--- NOTE | 2017-10-10 21:36 | NUR ---
MD ORDER: TALKED TO LUMBER MARKER EPIC, RELAYED ABOUT PT'S BLOOD SUGAR OF 402, AND PER AGGRESSIVE SCALE GIVEN 10UNITS OF REGULAR INSULIN, THEN CALL MD, PER LUMBER MARKER MD TO GIVE ADDITIONAL OF 8UNITS REGULAR INSULIN SQ, AND GIVE THE LEVEMIR 95UNITS ORDERED, INFORMED MD ABOUT PT BEING NON COMPLIANT WITH REGARDS TO DIET. REGULAR INSULIN 8UNITS GIVEN ORDERED AND LEVEMIR 95 UNITS SQ GIVEN ORDERED AT THIS TIME. COSIGNED WITNESSED BY KAROL STANFORD
[2017-10-10] MEDS: ENOXAPARIN SODIUM 30 MG/0.3 ML DISP.SYRIN SQ SCH (21:41)
[2017-10-10] MEDS: ARIPIPRAZOLE 5 MG TABLET PO SCH (21:41)
--- NOTE | 2017-10-10 21:42 | NUR ---
NON ADMINISTRATION OF ABILIFY: PT REFUSED ABILIFY STATED SHE DOESNT NEED IT, EDUCATION PROVIDED TO THE PT
[2017-10-11] MEDS: MUPIROCIN OINT 2% 22 GM TUBE TP SCH ×3 (00:24→23:44)
[2017-10-11] MEDS: BLOOD SUGAR DIAGNOSTIC 1 EACH STRIP IN SCH ×5 (00:25→21:41)
--- NOTE | 2017-10-11 00:30 | NUR ---
RECHECK OF BLOOD SUGAR: BLOOD SUGAR RECHECK AND OBTAIN RESULT OF 373, INFORMED PIPE THREADER MD, HE STATED ITS OKAY, NO COVERAGE, PT RECEIVED TOTAL OF 18UNITS REGULAR INSULIN LAST NIGHT AND LEVEMIR 95UNITS
[2017-10-11] MEDS: Z GUARD REMEDY 2 OZ OINT TP PRN (05:36)
[2017-10-11] MEDS: INSULIN REGULAR, HUMAN 100 UNIT/ML 3 ML VIAL SQ PRN ×3 (05:40→18:06)
--- NOTE | 2017-10-11 05:41 | NUR ---
RN NOTES: BLOOD SUGAR CHECK AND OBTAIN RESULT OF 269, 12UNITS OF INSULIN GIVEN PER SLIDING SCALE, PT TOLERATING PO INTAKE, WILL MONITOR FOR ANY S/S OF HYPOGLYCEMIA
--- NOTE | 2017-10-11 06:41 | NUR ---
RN CLOSING NOTES: PT IN BED, AWAKE, REMAINS A/O X3, DENIES ANY PAIN OR DISCOMFORT AT THIS TIME, NO N/V THROUGHOUT THE SHIFT. IV ACCESS REMAINS PATENT AND FLUSHING WELL, PT STILL REFUSED FOR IVF. VS REMAINS STABLE, NEEDS ATTENDED. SAFETY PRECAUTIONS FOR FALL REMAINS ENGAGED, CALL LIGHT IN REACH, WILL ENDORSE TO DAY RN FOR DYLLAN.
[2017-10-11 07:13] LABS: BASOPHILS % (AUTO) 0.6 % (0.0-2.0); EOSINOPHILS # (AUTO) 0.6 /CMM (0.0-0.7); EOSINOPHILS % (AUTO) 8.9 % (0.0-6.0); HEMATOCRIT 36 % (33-45); HEMOGLOBIN 11.8 g/dL (11.5-14.8); LYMPHOCYTES # (AUTO) 1.5 /CMM (0.8-4.8); LYMPHOCYTES % (AUTO) 23.8 % (20.0-44.0); MEAN CORPUSCULAR HEMOGLOBIN 33 PG (26.0-33.0); MEAN CORPUSCULAR HGB CONC 33 g/dl (31.0-36.0); MEAN CORPUSCULAR VOLUME 98 fL (82-100); MONOCYTES # (AUTO) 0.6 /CMM (0.1-1.30); MONOCYTES % (AUTO) 9.8 % (2.0-12.0); NEUTROPHILS # (AUTO) 3.6 /CMM (1.8-8.9); NEUTROPHILS % (AUTO) 56.9 % (43.0-81.0); PLATELET COUNT (AUTO) 226 /CMM (150-450); RDW COEFFICIENT OF VARIATION 14.2 (11.5-15.0); RED BLOOD CELL COUNT(AUTO) 3.64 MIL/uL (4.0-5.2); WHITE BLOOD COUNT (AUTO) 6.3 K/uL (4.3-11.0)
[2017-10-11 07:21] LABS: CALCIUM, SERUM 9.3 mg/dL (8.5-10.1); CREATININE 1.2 mg/dL (0.6-1.3); MAGNESIUM 2.1 mg/dL (1.8-2.4); PHOSPHORUS 3.2 mg/dL (2.5-4.9); POTASSIUM 4.5 mmol/L (3.5-5.1)
[2017-10-11] MEDS: LEVOTHYROXINE SODIUM 50 MCG TABLET PO SCH (07:30)
--- NOTE | 2017-10-11 07:51 | NUR ---
RN NOTES RECEIVED PT. PT IS STABLE AND SLEEPING IN BED. NO S/S OF DISTRESS, PT DOES NOT APPEAR TO BE IN PAIN. ON RA, O2 SAT WNL. IV ACCESS LOCATED ON RIGHT AC 20G WITH ORDER FOR NS AT 75 ML/HR, HOWEVER PT HAS REFUSED FLUIDS. PER IN STORE REPRESENTATIVE REPORT, PT BS ELEVATED AT 402 LAST NIGHT, COVERAGE GIVEN. SAFETY MEASURES IN PLACE, CALL LIGHT WITHIN REACH. WILL CONTINUE TO MONITOR.
[2017-10-11 08:00] VITALS: BP 128/69
[2017-10-11] MEDS: BENZTROPINE MESYLATE (1 MG) 1 MG TABLET PO SCH (09:00)
[2017-10-11] MEDS: VALSARTAN 40 MG TABLET PO SCH ×2 (09:00→17:00)
[2017-10-11] MEDS: DIVALPROEX SODIUM 250 MG TABLET.DR PO SCH ×3 (09:00→17:00)
[2017-10-11] MEDS: FLUTICASONE/VILANTEROL 1 EACH BLST.W.DEV IH SCH (09:08)
[2017-10-11] MEDS: GEMFIBROZIL 600 MG TABLET PO SCH ×2 (09:08→17:00)
[2017-10-11] MEDS: MAGNESIUM OXIDE 400 MG TABLET PO SCH ×2 (09:09→17:00)
[2017-10-11] MEDS: ASCORBIC ACID 500 MG TABLET PO SCH (09:09)
[2017-10-11] MEDS: FUROSEMIDE 20 MG TABLET PO SCH (09:09)
[2017-10-11] MEDS: ASPIRIN EC 81 MG TABLET.DR PO SCH (09:09)
[2017-10-11] MEDS: glipiZIDE 5 MG TABLET PO SCH (09:09)
[2017-10-11] MEDS: HYDROGEL DRESSING 90 GM TUBE TP SCH (09:09)
[2017-10-11] MEDS: SPIRONOLACTONE 25 MG TABLET PO SCH (09:09)
[2017-10-11] MEDS: ALLOPURINOL 100 MG TABLET PO SCH (09:09)
[2017-10-11] MEDS: VIT B CMPLX 3/FA/VIT C/BIOTIN 1 TAB TABLET PO SCH (09:09)
[2017-10-11] MEDS: NYSTATIN CREAM 15 GM TUBE TP SCH ×2 (09:10→17:00)
[2017-10-11] MEDS: Z GUARD REMEDY 2 OZ OINT TP SCH (09:11)
[2017-10-11] MEDS ORDERED: Hydrogel Dressing TP (12:18)
[2017-10-11] MEDS ORDERED: ASCO500T9 PO (12:18)
[2017-10-11] MEDS ORDERED: MUPI22OI7 TP (12:18)
[2017-10-11] MEDS ORDERED: VIT1TABL44 PO (12:18)
[2017-10-11] MEDS ORDERED: LEVO50TA PO (12:18)
[2017-10-11] MEDS ORDERED: SPIR25TA PO (12:18)
[2017-10-11] MEDS: DIGOXIN 0.25 MG TABLET PO SCH (13:00)
[2017-10-11 16:00] VITALS: BP 121/71
--- NOTE | 2017-10-11 18:50 | NUR ---
RN NOTES PT IS SITTING BEDSIDE. A/OX4, NO SOB OR C/O PAIN. PT HAS REFUSED A VARIETY OF MEDICATIONS AND IV FLUIDS THROUGHOUT THE DAY. D/C ORDER PLACED ON PT, HOWEVER AWAITING PLACEMENT INTO SNF FROM CASE MANAGEMENT. POTENTIAL D/C ON 10/12. ALL PT NEEDS ANTICIPATED AND MET. SAFETY MEASURES IN PLACE, CALL LIGHT WITHIN REACH. WILL ENDORSE TO ZIPPER TRIMMER HAND FOR DYLLAN.
[2017-10-11 20:00] VITALS: BP 126/92
[2017-10-11] MEDS: ENOXAPARIN SODIUM 30 MG/0.3 ML DISP.SYRIN SQ SCH (21:35)
[2017-10-11] MEDS: INSULIN DETEMIR 100 UNIT/ML CARTRIDGE SQ SCH (21:36)
[2017-10-11] MEDS: *INSULIN REGULAR(HUMULIN R)HUM 100 UNIT/ML VIAL SQ PRN (21:37)
[2017-10-11] MEDS: ARIPIPRAZOLE 5 MG TABLET PO SCH (21:42)
[2017-10-11] MEDS ORDERED: INSULIN REGULAR, HUMAN 100 UNIT/ML 10 ML VIAL SQ ONE (22:00)
--- NOTE | 2017-10-11 22:00 | NUR ---
intervention not performed during my. Dr Esposito was called for blood sugar of 415 per hospital protocol 10 units administered per regular sliding scale insulin HS and 10 additional units administered per MD one time order. 95 units of levemir also administered as scheduled per eMAR. Hyperglycemia and blood glucose parameters discussed with patient. Patient verbalized understanding. reinforcement needed due to motivation status at this time. patient states her levels are always 300s to 400s and requested two sandwiches and snacks so far this shift. will continue to monitor capillary glucose level and will continue with plan of care. Addendum: 10/11/17 at 5405 by GUSTAVO CHRISTINA RN Amended: Links added.
[2017-10-12] MEDS: BLOOD SUGAR DIAGNOSTIC 1 EACH STRIP IN SCH ×2 (06:34→12:06)
[2017-10-12] MEDS: LEVOTHYROXINE SODIUM 50 MCG TABLET PO SCH (06:39)
[2017-10-12] MEDS: INSULIN REGULAR, HUMAN 100 UNIT/ML 3 ML VIAL SQ PRN ×2 (06:46→12:08)
[2017-10-12 08:00] VITALS: BP 140/73
--- NOTE | 2017-10-12 08:00 | NUR ---
m/s egg caser: initial assessment received pt in bed awake, a/ox4. pt wearing her own clothes. pt refused full body assessment. no c/o pain or any discomfort. instructed to call for assistance. will continue to monitor.
[2017-10-12] MEDS: glipiZIDE 5 MG TABLET PO SCH (08:20)
[2017-10-12] MEDS: FUROSEMIDE 20 MG TABLET PO SCH (08:20)
[2017-10-12] MEDS: BENZTROPINE MESYLATE (1 MG) 1 MG TABLET PO SCH (08:20)
[2017-10-12 08:21] VITALS: BP 142/73
[2017-10-12] MEDS: VALSARTAN 40 MG TABLET PO SCH (08:21)
[2017-10-12] MEDS: VIT B CMPLX 3/FA/VIT C/BIOTIN 1 TAB TABLET PO SCH (08:21)
[2017-10-12] MEDS: ALLOPURINOL 100 MG TABLET PO SCH (08:21)
[2017-10-12] MEDS: MAGNESIUM OXIDE 400 MG TABLET PO SCH (08:21)
[2017-10-12] MEDS: SPIRONOLACTONE 25 MG TABLET PO SCH (08:21)
[2017-10-12] MEDS: ASCORBIC ACID 500 MG TABLET PO SCH (08:21)
[2017-10-12] MEDS: HYDROGEL DRESSING 90 GM TUBE TP SCH ×2 (08:23→09:00)
[2017-10-12] MEDS: FLUTICASONE/VILANTEROL 1 EACH BLST.W.DEV IH SCH (08:24)
[2017-10-12] MEDS: Z GUARD REMEDY 2 OZ OINT TP SCH (08:24)
[2017-10-12] MEDS: NYSTATIN CREAM 15 GM TUBE TP SCH ×2 (08:24→09:00)
[2017-10-12] MEDS: DIVALPROEX SODIUM 250 MG TABLET.DR PO SCH ×2 (08:25→12:06)
[2017-10-12] MEDS: GEMFIBROZIL 600 MG TABLET PO SCH (08:25)
[2017-10-12] MEDS: ASPIRIN EC 81 MG TABLET.DR PO SCH (08:26)
--- NOTE | 2017-10-12 09:00 | NUR ---
m/s civil preparedness officer: notes pt refused wound tx to her left thigh, stated, "it was done early this morning by night nurse." instructed to call for assistance. will continue to monitor. pt still anxiously waiting to go back to [facility].
--- NOTE | 2017-10-12 10:43 | NUR ---
m/s caser: md visit seen and examined by lucinda allen with order to discharge back to [facility]. order acknowledged. case management making arrangement.
--- NOTE | 2017-10-12 11:00 | NUR ---
m/s branch operations manager: notes snf arranged by case management for 2pm pick, pt made aware.
[2017-10-12] MEDS: MUPIROCIN OINT 2% 22 GM TUBE TP SCH (12:00)
[2017-10-12] MEDS: DIGOXIN 0.25 MG TABLET PO SCH (12:12)
--- NOTE | 2017-10-12 14:20 | NUR ---
m/s roughener: d'c instructions discharged instructions given to pt with prescriptions and verbalized understanding. h/l removed with tip intact with no bleeding, no redness, and swelling noted. report given to malathi (rn) at [facility] for continuity of care. spoke to pt social sciences department chair and aware that pt is going to snf today; also ambassadokendall wolfe (intermediate) got a hold of pt's social sciences department chair and discussed short term snf placement per case management.
--- NOTE | 2017-10-12 14:40 | NUR ---
m/s campaign worker: discharged discharged to snf via ambulance with all d'c papers and prescriptions in stable condition.
== END 2017-10-12 14:38 | DRG 682 ==
LOC: ER 20:03 → MED 21:49
PROVIDERS: ADMIT Nurse Practitioner Acute Care; ATTEND Nurse Practitioner Acute Care
DX: N17.9 Acute kidney failure, unspecified (principal); L89.893 Pressure ulcer of other site, stage 3; I11.0 Hypertensive heart disease with heart failure; E66.01 Morbid (severe) obesity due to excess calories; I50.9 Heart failure, unspecified; L03.012 Cellulitis of left finger; E10.9 Type 1 diabetes mellitus without complications; E86.0 Dehydration; Z68.43 Body mass index [BMI] 50.0-59.9, adult; D17.9 Benign lipomatous neoplasm, unspecified; E03.9 Hypothyroidism, unspecified; E78.5 Hyperlipidemia, unspecified; F31.9 Bipolar disorder, unspecified; J44.9 Chronic obstructive pulmonary disease, unspecified; L30.4 Erythema intertrigo; M19.90 Unspecified osteoarthritis, unspecified site; Z79.4 Long term (current) use of insulin; Z85.42 Personal history of malignant neoplasm of other parts of uterus; Z87.891 Personal history of nicotine dependence; Z90.710 Acquired absence of both cervix and uterus; Z91.19 Patient's noncompliance with other medical treatment and regimen; J40 Bronchitis, not specified as acute or chronic; T50.905A Adverse effect of unspecified drugs, medicaments and biological substances, initial encounter; Y92.89 Other specified places as the place of occurrence of the external cause
CPT/HCPCS: 36415; 80048-TC; 80053-TC; 80061-TC; 80076-TC; 80162-TC; 80202-TC; 82962-TC; 83690-TC; 83735-TC; 84100-TC; 84439-TC; 84443-TC; 85025-TC; 87081-TC; A6248; A6402; J1650; J1815; J2405; J7030

== ENCOUNTER 2019-04-02 20:10 | Inpatient (IN) | payer MEDICARE, OTHER ==
[~2019-04-02] VITALS: Ht 167.6 cm; Wt 170.7 kg
[~2019-04-02 20:10] MED LIST changes: +ASCO500T9 PO; +ASPI-1152 PO; -ASPI-991 PO; +DIVA-76 PO; -DIVA250T6 PO; -GEMF600T3 PO; +GEMF600T5 PO; +Hydrogel Dressing TP; +LEVO50TA PO; +MUPI22OI7 TP; +SPIR25TA PO; -SPIR50TA PO; -SULF1TAB48 PO; +VIT1TABL44 PO
--- NOTE | 2019-04-02 20:28 | NUR ---
[id number] C/O "LOWER ABD MASS" X 7 MONTHS. DENIES N/V/D. -FEVER. PT IS AOX4, AMB WITH WALKER, VSS, PLACED ON 2L NC FOR SOB. SKIN INTACT, NO ACUTE DISTRESS NOTED. HOOKED TO MONITOR AND MADE COMFORTABLE. READY FOR EVAL.
[2019-04-02 21:03] LABS: BASOPHILS # (AUTO) 0.2 /CMM (0.0-0.2); BASOPHILS % (AUTO) 2.3 % (0.0-2.0); EOSINOPHILS % (AUTO) 12.3 % (0.0-6.0); HEMATOCRIT 31 % (33-45); HEMOGLOBIN 10.1 g/dL (11.5-14.8); LYMPHOCYTES % (AUTO) 11.9 % (20.0-44.0); MEAN CORPUSCULAR HGB CONC 33 g/dl (31.0-36.0); MEAN CORPUSCULAR VOLUME 103 fL (82-100); MONOCYTES # (AUTO) 0.5 /CMM (0.1-1.30); MONOCYTES % (AUTO) 6.6 % (2.0-12.0); NEUTROPHILS # (AUTO) 5.4 /CMM (1.8-8.9); NEUTROPHILS % (AUTO) 66.9 % (43.0-81.0); PLATELET COUNT (AUTO) 173 /CMM (150-450); RED BLOOD CELL COUNT(AUTO) 2.99 MIL/uL (4.0-5.2)
[2019-04-02 21:25] LABS: BILIRUBIN,DIRECT 0.1 mg/dL (0.0-0.2); BILIRUBIN,TOTAL 0.2 mg/dL (0.2-1.0); CREATININE 1.4 mg/dL (0.6-1.3); TOTAL PROTEIN, SERUM 6.6 g/dL (6.4-8.2)
[2019-04-02 21:27] LABS: POTASSIUM 6.9 mmol/L (3.5-5.1)
[2019-04-02] MEDS ORDERED: VANCOMYCIN 2 GM in IV D5W 500 ML IV ONE (21:30)
--- NOTE | 2019-04-02 21:45 | NUR ---
TECH AT BEDSIDE FOR EKG
[2019-04-02] MEDS ORDERED: VANCOMYCIN 1 GM VIAL ONE (21:52)
[2019-04-02] MEDS ORDERED: IV NS 0.9% 1,000 ML BAG IV ONE ×2 (22:00→22:30)
[2019-04-02 22:02] LABS: CALCIUM, SERUM 9.1 mg/dL (8.5-10.1); CREATININE 1.4 mg/dL (0.6-1.3)
[2019-04-02 22:03] LABS: POTASSIUM 6.5 mmol/L (3.5-5.1)
[2019-04-02] MEDS ORDERED: INSULIN REGULAR, HUMAN 100 UNIT/ML 10 ML VIAL ONE (22:10)
[2019-04-02] MEDS ORDERED: Calcium Gluconate 0.465 MEQ/ML VIAL IV ONE (22:10)
[2019-04-02] MEDS ORDERED: DEXTROSE 50%-WATER 50 ML DISP.SYRIN ONE (22:10)
[2019-04-02] MEDS ORDERED: SODIUM BICARBONATE 5 ML VIAL ONE (22:12)
[2019-04-02] MEDS ORDERED: SODIUM BICARBONATE SYR 50 MEQ/50 ML DISP.SYRIN ONE (22:13)
--- NOTE | 2019-04-02 22:14 | NUR ---
PT RESTING COMFORTABLY IN BED. NO COMPLAINTS AT THIS TIME
[2019-04-02] MEDS ORDERED: FUROSEMIDE 20 MG/2 ML VIAL ONE (22:23)
[2019-04-02] MEDS ORDERED: SODIUM POLYSTYRENE SULFONATE 15 G/60 ML BOTTLE PO ONE (22:30)
[2019-04-02] MEDS ORDERED: ALBUTEROL FS 2.5 MG/0.5 ML VIAL.NEB NEB PRN (22:30)
[2019-04-02] MEDS ORDERED: MORPHINE SULFATE INJ 2 MG/ML DISP.SYRIN IV PRN (22:30)
[2019-04-02] MEDS ORDERED: DEXTROSE 50%-WATER 50 ML DISP.SYRIN IV PRN (22:30)
[2019-04-02] MEDS ORDERED: SODIUM BICARBONATE SYR 50 MEQ/50 ML DISP.SYRIN IV ONE (22:30)
[2019-04-02] MEDS ORDERED: ONDANSETRON HCL/PF 4 MG/2 ML VIAL IVP PRN (22:30)
[2019-04-02] MEDS ORDERED: IPRATROPIUM NEB FS 0.5 MG/2.5 ML AMPUL.NEB NEB PRN (22:30)
[2019-04-02] MEDS ORDERED: HYDROCODONE/APAP 5/325MG 1 EACH TABLET PO PRN (22:30)
[2019-04-02] MEDS ORDERED: DEXTROSE 50%-WATER 50 ML DISP.SYRIN IV ONE (22:30)
[2019-04-02] MEDS ORDERED: ACETAMINOPHEN 325 MG TABLET PO PRN (22:30)
[2019-04-02] MEDS ORDERED: Calcium Gluconate 1GM/10ML 4.65 MEQ in IV NS 0.9% 50 ML IV ONE (22:30)
[2019-04-02] MEDS ORDERED: MAGNESIUM HYDROXIDE 30 ML UDC PO PRN (22:30)
[2019-04-02] MEDS ORDERED: MAG HYDROX/AL HYDROX/SIMETH 30 ML UDC PO PRN (22:30)
[2019-04-02] MEDS ORDERED: INSULIN REGULAR, HUMAN 100 UNIT/ML 10 ML VIAL IV ONE (22:30)
[2019-04-02] MEDS ORDERED: FUROSEMIDE 40 MG/4 ML VIAL IV ONE (22:30)
[2019-04-02] MEDS ORDERED: TEMAZEPAM 15 MG CAPSULE PO PRN (22:30)
[2019-04-02] MEDS ORDERED: SODIUM POLYSTYRENE SULFONATE 15 G/60 ML BOTTLE ONE (22:36)
--- NOTE | 2019-04-02 22:48 | NUR ---
TELE 320-1
--- NOTE | 2019-04-02 23:27 | NUR ---
REPORT GIVEN TO KAROL DYER FOR 320-1 TELE
[2019-04-02 23:30] LABS: APPEARANCE,URINE CLEAR (CLEAR); BILIRUBIN,URINE NEGATIVE (NEGATIVE); BLOOD, URINE 1+ Ery/uL (NEGATIVE); COLOR,URINE YELLOW (YELLOW); KETONES,URINE NEGATIVE (NEGATIVE); LEUKOCYTE ESTERASE ,URINE NEGATIVE (NEGATIVE); NITRITE, URINE POSITIVE (NEGATIVE); PROTEIN,URINE 2+ mg/dl (NEGATIVE); UGLUCOSE NEGATIVE (NEGATIVE); UROBILINOGEN,URINE 0.2 EU/dL (0.2)
--- NOTE | 2019-04-02 23:30 | NUR ---
PER RESEARCH ARCHAEOLOGIST RICARDO, ONLY GIVE 1G KIETO
--- NOTE | 2019-04-02 23:58 | NUR ---
[facility]
[2019-04-03] VITALS (7 sets, daily range): BP systolic 128–160; BP diastolic 60–79
--- NOTE | 2019-04-03 | NUR ---
IVF CONT TO INFUSE ON FLOOR
[2019-04-03 00:21] LABS: BACTERIA,URINE Moderate /HPF (None Seen); SQUAMOUS EPITHELIAL CELL,UR Few /HPF (None Seen)
--- NOTE | 2019-04-03 00:47 | NUR ---
TYPESETTER PERFORATOR OPERATOR NOTES PATIENT ARRIVED ON THE UNIT AT 0000. NO SIGNS OF RESPIRATORY DISTRESS. NO SOB NOTED. PHOTOS OF BODY WAS TAKEN AND PLACED ON CHART. PATIENT HAS A BIG "BALL" ON PERINEUM. PATIENT COMPLAINS OF PAIN 4/10 ON THAT AREA OF PERINEUM. WILL CONTINUE TO MONITOR PATIENT.
--- NOTE | 2019-04-03 02:58 | NUR ---
RN NOTES IV 0.9% NS 1000 BOLUS GIVEN IN ER.
[2019-04-03] MEDS: IV NS 0.9% 1,000 ML IV PRN (05:47)
[2019-04-03 06:22] LABS: BASOPHILS % (AUTO) 0.5 % (0.0-2.0); EOSINOPHILS % (AUTO) 6.4 % (0.0-6.0); HEMATOCRIT 30 % (33-45); HEMOGLOBIN 9.8 g/dL (11.5-14.8); LYMPHOCYTES # (AUTO) 0.8 /CMM (0.8-4.8); LYMPHOCYTES % (AUTO) 11.9 % (20.0-44.0); MEAN CORPUSCULAR HGB CONC 33 g/dl (31.0-36.0); MEAN CORPUSCULAR VOLUME 102 fL (82-100); MONOCYTES # (AUTO) 0.5 /CMM (0.1-1.30); MONOCYTES % (AUTO) 6.8 % (2.0-12.0); NEUTROPHILS # (AUTO) 5.2 /CMM (1.8-8.9); NEUTROPHILS % (AUTO) 74.4 % (43.0-81.0); PLATELET COUNT (AUTO) 162 /CMM (150-450); RED BLOOD CELL COUNT(AUTO) 2.91 MIL/uL (4.0-5.2); WHITE BLOOD COUNT (AUTO) 6.9 K/uL (4.3-11.0)
[2019-04-03 06:42] LABS: CALCIUM, SERUM 8.9 mg/dL (8.5-10.1); CREATININE 1.2 mg/dL (0.6-1.3); MAGNESIUM 2.5 mg/dL (1.8-2.4); PHOSPHORUS 4.2 mg/dL (2.5-4.9)
--- NOTE | 2019-04-03 06:43 | NUR ---
RN CLOSING NOTES PATIENT IS RESTING COMFORTABLY IN BED. NO SIGNS OF RESPIRATORY DISTRESS NOTED. NO SHORTNESS OF BREATH NOTED. PATIENT HAS NO SIGNS OF PAIN OR DISCOMFORT. TELE READING SR 83. BLOOD SUGAR 155. PATIENT DID NOT CALL FOR PAIN MEDICATION. PATIENT RESTED THROUGHOUT THE NIGHT SHORTLY AFTER THE ADMISSION PROCESS. ALL NEEDS WERE MET. SAFETY PRECAUTIONS IMPLEMENTED. CALL LIGHT WITHIN REACH. WILL ENDORSE TO AM RN.
[2019-04-03 06:45] LABS: THYROID STIMULATING HORMONE 4.529 uIU/mL (0.358-3.74)
[2019-04-03 07:10] LABS: EOSINOPHILS % (MANUAL) 7 % (0-4); LYMPHOCYTES % (MANUAL) 17 % (16-48); MONOCYTES % (MANUAL) 6 % (0-11.0); NEUTROPHILS % (MANUAL) 70 (42-76)
--- NOTE | 2019-04-03 07:26 | NUR ---
PERFORMING ARTS TECHNICIANS OPENING NOTES RECEIVED PT AWAKE IN BED IN NO ACUTE SIGNS OF DISTRESS. A/O X4. ABLE TO MAKE NEEDS KNOWN, DENIES PAIN OR ANY DISCOMFORTS AT THIS TIME. ON ROOM AIR, BREATHING EVEN AND UNLABORED. ON TELE-MONITORING WITH CURRENT READING OF SR WITH HR OF 78, NO CARDIAC DISTRESS VOICED. IV ACCESS ON RAC INTACT AND PATENT, IVF OF NS @ 75ML/HR INFUSING WELL, NO S/S OF INFILTRATIONS NOTED. SAFETY MEASURES IN PLACE. BED IN LOW LOCKED POSITION WITH SIDE-RAILS UP X2. CALL LIGHT IN REACH. WILL CONTINUE TO MONITOR.
[2019-04-03] MEDS ORDERED: ACET-868 PO (07:41)
[2019-04-03] MEDS ORDERED: ASCO500T9 PO (07:41)
[2019-04-03] MEDS ORDERED: GUAI5SYR PO (07:41)
[2019-04-03] MEDS ORDERED: SPIR25TA PO (07:41)
[2019-04-03] MEDS ORDERED: METF-440 PO (07:41)
[2019-04-03] MEDS ORDERED: LEVO50TA8 PO (07:41)
[2019-04-03] MEDS ORDERED: SITA100T PO (07:41)
[2019-04-03] MEDS ORDERED: TRAM50TA2 PO (07:41)
[2019-04-03] MEDS ORDERED: FLUT1DIS IH (07:41)
[2019-04-03] MEDS ORDERED: INSU100I26 SQ (07:41)
[2019-04-03] MEDS ORDERED: INSU100V30 SQ (07:41)
[2019-04-03] MEDS: PANTOPRAZOLE 40 MG TABLET.DR PO SCH (08:02)
[2019-04-03] MEDS: INSULIN REGULAR, HUMAN 100 UNIT/ML 3 ML VIAL SQ PRN ×4 (08:05→21:33)
[2019-04-03] MEDS ORDERED: FEE PK DOSING 1 MIN EA MC ONE (08:06)
[2019-04-03] MEDS: BLOOD SUGAR DIAGNOSTIC 1 EACH STRIP IN SCH ×4 (08:06→21:30)
--- NOTE | 2019-04-03 09:38 | NUR ---
RN NOTES DR VITAL ON UNIT AND INFORMED HIM TO VERIFY AND DO MED RECONCILIATION OF PT'S HOME MEDS AND HE SAID "OK".
--- NOTE | 2019-04-03 09:46 | NUR ---
RN NOTES PATIENT FOR SURGICAL CONSULT BY TATY EVANGELISTA REGARDING LOWER ABDOMINAL MASS. TITUS DAVENPORT LEFT MESSAGE TO DR LEES. WILL F/U.
[2019-04-03] MEDS ORDERED: POTASSIUM CHLORIDE 20 MEQ TAB.PRT.SR PO ONE (11:30)
[2019-04-03] MEDS: VANCOMYCIN 1.25 GM in IV D5W 500 ML IV SCH (14:09)
[2019-04-03 14:57] LABS: CALCIUM, SERUM 8.7 mg/dL (8.5-10.1); CREATININE 1.6 mg/dL (0.6-1.3)
--- NOTE | 2019-04-03 16:01 | NUR ---
RN NOTES BMP DONE THIS AFTERNOON, RESULTS STILL PENDING AT THIS TIME. WILL CONTINUE TO MONITOR
[2019-04-03 16:12] LABS: POTASSIUM 6.3 mmol/L (3.5-5.1)
--- NOTE | 2019-04-03 16:19 | NUR ---
RN NOTES RECEIVED CALL FROM CONCRETE STONE FABRICATOR ETHEL NIETO THAT PT HAS CRITICAL POTASSIUM LEVEL OF 6.3. MD LEES SAID TO CALL HIM IF LEVEL IS >5.5. CALLED NEPHROLOGY EXCHANGE AT [facility] # [phone] AND ELECTRIC METER REPAIRER APPRENTICE SAID THAT SHE WILL CONTACT DR LEES OR THE PROTOZOOLOGIST
[2019-04-03] MEDS ORDERED: INSULIN REGULAR, HUMAN 100 UNIT/ML 3 ML VIAL IV ONE (16:30)
[2019-04-03] MEDS: ALBUTEROL FS 2.5 MG/0.5 ML VIAL.NEB NEB ONE ×2 (16:30→17:36)
--- NOTE | 2019-04-03 16:43 | NUR ---
RN NOTES RECEIVED RETURNED CALL FROM RYAN LICEA AND INFORMED HER REGARDING PT'S HIGH ELEVATED POTASSIUM 6.3. DR DAVIS ORDERED TO GIVE LASIX 40MG IV X1, KAYEXALATE 45MG X1, DEXTROSE INJ 50ML X1, REGULAR INSULIN 10 UNITS IV X1 AND ALBUTEROL NEB'Z X1. WILL CARRY OUT ORDERS
[2019-04-03] MEDS ORDERED: FUROSEMIDE 40 MG/4 ML VIAL IV ONE (16:45)
[2019-04-03] MEDS ORDERED: SODIUM POLYSTYRENE SULFONATE 15 G/60 ML BOTTLE PO ONE (16:45)
[2019-04-03] MEDS ORDERED: DEXTROSE 50%-WATER 50 ML DISP.SYRIN IVP ONE (16:45)
--- NOTE | 2019-04-03 17:38 | NUR ---
RN NOTES PATIENT SEEN AND EVALUATED BY JARROD LINDSAY WITH ORDERS TO DO CT SCAN OF ABD MASS W/O CONTRAST AND TO ELEVATE ABDOMINAL MASS WITH ROLLED TOWEL. WILL CARRY OUT ORDERS AND CONTINUE TO MONITOR PT ACCORDINGLY.
--- NOTE | 2019-04-03 18:13 | NUR ---
RN NOTES PATIENT AWAKE AND TRANSPORTED DOWN TO CT ROOM VIA HER BED FOR CT OF ABDOMEN W/O CONTRAST.
--- NOTE | 2019-04-03 18:45 | NUR ---
MS RN CLOSING NOTES PATIENT IN BED JUST RETURNED FROM CT SCAN OF LOWER ABDOMEN W/O CONTRAST. A/O X4. ABLE TO MAKE NEEDS KNOWN. ON ROOM AIR,TOLERATING WELL WITH NO SOB NOTED. IV ACCESS ON RAC G #20 INTACT AND PATENT, IVF OF NS @ 75ML/HR INFUSING WELL, NO S/S OF INFILTRATIONS NOTED. PLACED ROLLED TOWEL UNDER LOWER ABDOMINAL MASS. PT KEPT CLEAN, DRY AND COMFORTABLE. ALL NEEDS AND CARE ATTENDED WELL. SAFETY MEASURES KEPT IN PLACE. BED IN LOW LOCKED POSITION WITH SIDE-RAILS UP X2. CALL LIGHT IN REACH. WILL ENDORSE TO MACHINERY MECHANIC NURSE FOR DYLLAN.
--- NOTE | 2019-04-03 19:20 | NUR ---
RN OPEN NOTES RECEIVED PATIENT AWAKE IN BED. A/OX4. NO SIGNS OF DISTRESS OR DISCOMFORT. BREATHING EVEN AND UNLABORED. IB ACCESS IN RAC WITH NS INFUSING, PATENT AND INTACT, NO SIGNS OF REDNESS OR INFILTRATION. ABD MASS BEING ELEVATED WITH ROLLED TOWEL. BED IN LOW LOCKED POSITION WITH SIDE RAILS X2. CALL LIGHT WITHIN REACH. WILL CONTINUE TO MONITOR.
[2019-04-03] MEDS: INSULIN GLARGINE, 100 UNIT/ML CARTRIDGE SQ SCH (21:31)
[2019-04-03] MEDS: ENOXAPARIN SODIUM 30 MG/0.3 ML DISP.SYRIN SQ SCH (21:34)
--- NOTE | 2019-04-03 22:00 | NUR ---
RN NOTES BARIMAXX BED WAS BROUGHT ON UNIT BY [employer]. PATIENT REFUSED BED, STATES SHE IS FINE WITH THE BED SHE HAS AND DOESN'T WANT THAT ONE. PATIENT SAYS SHE IS NOT BED BOUND AND WALKS INDEPENDENTLY AT HOME AND IS ABLE TO MOVE INDEPENDENTLY IN BED. CHARGE NURSE MADE AWARE. WILL CONTINUE TO MONITOR.
[2019-04-04] MEDS: IV NS 0.9% 1,000 ML IV PRN (03:56)
--- NOTE | 2019-04-04 06:43 | NUR ---
RN CLOSING NOTES PATIENT RESTING IN BED. A/OX4. NO SIGNS OF DISTRESS OR DISCOMFORT. BREATHING EVEN AND UNLABORED. IV ACCESS IN RAC WITH NS INFUSING, PATENT AND INTACT, NO SIGNS OF REDNESS OR INFILTRATION. ABD MASS BEING ELEVATED WITH ROLLED TOWEL. ALL NEEDS MET. NO SIGNIFICANT CHANGES THROUGH THE NIGHT. BED IN LOW LOCKED POSITION WITH SIDE RAILS X2. CALL LIGHT WITHIN REACH. WILL ENDORSE TO AM SHIFT FOR DYLLAN.
[2019-04-04] MEDS: BLOOD SUGAR DIAGNOSTIC 1 EACH STRIP IN SCH ×4 (06:46→21:48)
[2019-04-04] MEDS: INSULIN REGULAR, HUMAN 100 UNIT/ML 3 ML VIAL SQ PRN ×4 (06:48→21:46)
[2019-04-04 07:09] LABS: CALCIUM, SERUM 8.8 mg/dL (8.5-10.1); CREATININE 1.5 mg/dL (0.6-1.3); POTASSIUM 5.6 mmol/L (3.5-5.1)
--- NOTE | 2019-04-04 07:43 | NUR ---
RN MS OPENING NOTES Patient received on room air, no sob noted. Patient remains a/o x4 at ths time. IVF infusing with no obstruction at this time. No signs of redness or infiltration. ABD mass elevated with towel. Bed at the lowest setting, call light within reach.
[2019-04-04 08:00] VITALS: BP 144/76
[2019-04-04] MEDS: PANTOPRAZOLE 40 MG TABLET.DR PO SCH (08:34)
[2019-04-04] MEDS: VANCOMYCIN 1.25 GM in IV D5W 500 ML IV SCH (08:35)
[2019-04-04] MEDS ORDERED: FUROSEMIDE 40 MG/4 ML VIAL IV ONE (12:00)
[2019-04-04 16:00] VITALS: BP 137/69
--- NOTE | 2019-04-04 19:03 | NUR ---
RN MS NOTES CLOSING Patient in bed on room air with no sob noted. No sob or discomfort noted. IV access in RAC infusing and intact. ABD mass being elevated with rolled tower at this time. Patient denies pain, patient bed is at the lowest setting, call light within reach.
[2019-04-04 20:00] VITALS: BP 134/79
--- NOTE | 2019-04-04 20:38 | NUR ---
RN OPEN NOTES RECEIVED PATIENT AWAKE IN BED. A/OX4. NO SIGNS OF DISTRESS OR DISCOMFORT. BREATHING EVEN AND UNLABORED. IV ACCESS IN RAC WITH NS INFUSING, PATENT AND INTACT, NO SIGNS OF REDNESS OR INFILTRATION. ABD MASS BEING ELEVATED WITH ROLLED TOWEL. BED IN LOW LOCKED POSITION WITH SIDE RAILS X2. CALL LIGHT WITHIN REACH. WILL CONTINUE TO MONITOR.
[2019-04-04] MEDS: MUPIROCIN OINT 2% 22 GM TUBE SCH (21:41)
[2019-04-04] MEDS: ENOXAPARIN SODIUM 30 MG/0.3 ML DISP.SYRIN SQ SCH (21:46)
[2019-04-04] MEDS: INSULIN GLARGINE, 100 UNIT/ML CARTRIDGE SQ SCH (21:47)
--- NOTE | 2019-04-05 02:29 | NUR ---
RN NOTES PATIENT IV STARTED LEAKING. ATTEMPTED TO REINSERT NEW IV. MULTIPLE IV ATTEMPTS FROM CHARGE NURSE AND ICU NURSE, STILL COULD NOT GET ONE STARTED. NOTIFIED NURSING OUTSIDE SALESMAN AND MD THAT PATIENT IS A HARD STICK AND WE HAVE ATTEMPTED MULTIPLE TIME. RECEIVED ORDER FOR MIDLINE INSERTION FROM RICARDO GARAY. WILL ENDORSE TO AM SHIFT AND CARRY OUT ORDER IN AM, MIDLINE NURSE IS CURRENTLY UNAVAILABLE.
[2019-04-05] MEDS: VANCOMYCIN 1.25 GM in IV D5W 500 ML IV SCH (03:00)
--- NOTE | 2019-04-05 03:00 | NUR ---
RN NOTES DID NOT ADMINISTER VANCO 1.25GM ORDERED. PATIENT DOES NOT HAVE AN IV ACCESS AT THIS TIME. AWAITING MIDLINE INSERTION. MD AWARE. WILL CONTINUE TO MONITOR.
[2019-04-05] MEDS: INSULIN REGULAR, HUMAN 100 UNIT/ML 3 ML VIAL SQ PRN ×2 (06:33→12:24)
[2019-04-05] MEDS: BLOOD SUGAR DIAGNOSTIC 1 EACH STRIP IN SCH ×2 (06:34→12:15)
--- NOTE | 2019-04-05 06:37 | NUR ---
RN CLOSING NOTES PATIENT RESTING IN BED. A/OX4. NO SIGNS OF DISTRESS OR DISCOMFORT. BREATHING EVEN AND UNLABORED. HAS NO IV ACCESS AT THIS TIME, AWAITING MIDLINE INSERTION. ABD MASS BEING ELEVATED WITH ROLLED TOWEL. ALL NEEDS MET. NO SIGNIFICANT CHANGES THROUGH THE NIGHT. BED IN LOW LOCKED POSITION WITH SIDE RAILS X2. CALL LIGHT WITHIN REACH. WILL ENDORSE TO AM SHIFT FOR DYLLAN.
--- NOTE | 2019-04-05 07:30 | NUR ---
Fabienne RN notes Received PT from Night Nurse. PT is alert and oriented X4. Pt is resting in bed watching TV. No sign of distress or discomfort. PT has no IV access at this time, still waiting for midline insertion. Bed at low position and call light within reach. Will continue to monitor.
[2019-04-05 07:47] LABS: CREATININE 1.2 mg/dL (0.6-1.3); POTASSIUM 4.9 mmol/L (3.5-5.1)
[2019-04-05 08:00] VITALS: BP 121/79
[2019-04-05] MEDS: PANTOPRAZOLE 40 MG TABLET.DR PO SCH ×2 (08:26→08:27)
[2019-04-05] MEDS: MUPIROCIN OINT 2% 22 GM TUBE SCH (08:30)
--- NOTE | 2019-04-05 10:05 | NUR ---
Fabienne RN notes Dr. Green spoke with the PT about plan of care and treatment plan. PT verbalize understanding.
--- NOTE | 2019-04-05 10:31 | NUR ---
WOUND CARE CONSULT WOUND CARE RECEIVED CONSULT FOR BILATERAL LOWER EXTREMITY CELLULITIS AND ABDOMINAL MASS. WOUND CARE WILL DEFER CONSULT AND ALL TREATMENT PLANS TO PLASTIC SURGICAL TEAM WHO ARE CURRENTLY FOLLOWING. PATIENT WITH FRANKLIN AT 14, ALL PRESSURE ULCER PREVENTION MEASURES ARE NOTED TO BE IN PLACE AT THIS TIME. WILL SEE PRN.
[2019-04-05] MEDS ORDERED: Z GUARD REMEDY 2 OZ OINT TP PRN ×2 (11:00→12:30)
[2019-04-05] MEDS ORDERED: VANCOMYCIN 1.25 GM in IV D5W 500 ML IV SCH (12:00)
--- NOTE | 2019-04-05 13:30 | NUR ---
KAROL NGUYEN NOTES PHYSICAL THERAPY CAME AND HELPED THE PATIENT TO STAND UP WITH A WALKER. PT TOLERATED ACTIVITY WELL.
[2019-04-05] MEDS ORDERED: VANC1PIG IV (14:49)
--- NOTE | 2019-04-05 18:00 | NUR ---
RN MS NOTES PT IN BED, AWAKE, ALERT AND ORIENTED, NO COMPLAINT OF PAIN, NOT IN DISTRESS, SEEN BY DR. JUNG TODAY, DISCHARGE ORDER GIVEN, PT INFORMED, DISCHARGE AND MEDICATION INSTRUCTIONS PROVIDED TO PT, VERBALIZED UNDERSTANDING, REPORT GIVEN TO ELADIO ROBERSON OF [facility], BELONGINGS ACCOUNTED FOR, PICKED UP BY 2 AMBULANCE PERSONNEL, LEFT VIA GUERNEY IN STABLE CONDITION.
== END 2019-04-05 18:45 | DRG 606 ==
LOC: ER 20:17 → TELE 23:21 → MED 04-03 09:42
PROVIDERS: ADMIT Nurse Practitioner Acute Care; ATTEND Student in an Organized Health Care Education/Training Program
PROC: 05H633Z Insertion of Infusion Device into Left Subclavian Vein, Percutaneous Approach (ICD-10-PCS; principal; 2019-04-05)
PROC: B547ZZA Ultrasonography of Left Subclavian Vein, Guidance (ICD-10-PCS; 2019-04-05)
DX: M79.3 Panniculitis, unspecified (principal); N17.0 Acute kidney failure with tubular necrosis; E43 Unspecified severe protein-calorie malnutrition; L03.311 Cellulitis of abdominal wall; I50.32 Chronic diastolic (congestive) heart failure; L03.115 Cellulitis of right lower limb; L03.116 Cellulitis of left lower limb; D68.59 Other primary thrombophilia; I13.0 Hypertensive heart and chronic kidney disease with heart failure and stage 1 through stage 4 chronic kidney disease, or unspecified chronic kidney disease; Z68.44 Body mass index [BMI] 60.0-69.9, adult; E87.5 Hyperkalemia; I11.0 Hypertensive heart disease with heart failure; Z87.891 Personal history of nicotine dependence; E03.9 Hypothyroidism, unspecified; I87.2 Venous insufficiency (chronic) (peripheral); J44.9 Chronic obstructive pulmonary disease, unspecified; Z79.4 Long term (current) use of insulin; L30.4 Erythema intertrigo; N18.9 Chronic kidney disease, unspecified; M10.9 Gout, unspecified; I35.0 Nonrheumatic aortic (valve) stenosis; E66.01 Morbid (severe) obesity due to excess calories; E78.5 Hyperlipidemia, unspecified; E11.22 Type 2 diabetes mellitus with diabetic chronic kidney disease; E11.42 Type 2 diabetes mellitus with diabetic polyneuropathy; E11.51 Type 2 diabetes mellitus with diabetic peripheral angiopathy without gangrene; S71.112A Laceration without foreign body, left thigh, initial encounter; X58.XXXA Exposure to other specified factors, initial encounter; Y93.9 Activity, unspecified; Y92.89 Other specified places as the place of occurrence of the external cause; R59.0 Localized enlarged lymph nodes; M19.90 Unspecified osteoarthritis, unspecified site
CPT/HCPCS: 36415; 36569; 72192-TC; 80048-TC; 80061-TC; 80076-TC; 80202-TC; 81000-TC; 82962-TC; 83605-TC; 83735-TC; 83880; 84100-TC; 84443-TC; 84484-TC; 85025-TC; 85730-TC; 87040-TC; 87081-TC; 87086-TC; 93971-TC; 97116-TC; A4216; G0378; J0610; J1650; J1815; J1940; J3370; J3490; J7030; J7060

== ENCOUNTER 2019-05-19 14:11 | Inpatient (IN) | payer MEDICARE, OTHER ==
[~2019-05-19] VITALS: Ht 167.6 cm; Wt 157.9 kg
[~2019-05-19 14:11] MED LIST changes: +ACET-868 PO; -FLUT1BLS IH; +FLUT1DIS IH; +GUAI5SYR PO; -Hydrogel Dressing TP; +INSU100I26 SQ; +INSU100V30 SQ; -INSU3INS6 SUBCUT; -LEVO50TA PO; +LEVO50TA8 PO; +METF-440 PO; -MUPI22OI7 TP; +SITA100T PO; +TRAM50TA2 PO; +VANC1PIG IV; -VIT1TABL44 PO
--- NOTE | 2019-05-19 14:35 | NUR ---
MAGED FROM [facility] FOR BLE SWELLING/REDNESS; PT AAOX4, -SOB, PT ON MONITOR, VSS, NAD NOTED, PENDING MD MURPHY
[2019-05-19 14:49] LABS: BASOPHILS # (AUTO) 0.1 /CMM (0.0-0.2); BASOPHILS % (AUTO) 1.3 % (0.0-2.0); EOSINOPHILS % (AUTO) 7.2 % (0.0-6.0); HEMATOCRIT 33 % (33-45); HEMOGLOBIN 10.9 g/dL (11.5-14.8); LYMPHOCYTES # (AUTO) 0.8 /CMM (0.8-4.8); LYMPHOCYTES % (AUTO) 11.1 % (20.0-44.0); MEAN CORPUSCULAR HGB CONC 33 g/dl (31.0-36.0); MEAN CORPUSCULAR VOLUME 102 fL (82-100); MONOCYTES # (AUTO) 0.5 /CMM (0.1-1.30); MONOCYTES % (AUTO) 7.9 % (2.0-12.0); NEUTROPHILS # (AUTO) 5.1 /CMM (1.8-8.9); NEUTROPHILS % (AUTO) 72.5 % (43.0-81.0); PLATELET COUNT (AUTO) 205 /CMM (150-450); RED BLOOD CELL COUNT(AUTO) 3.28 MIL/uL (4.0-5.2)
[2019-05-19] MEDS ORDERED: VANCOMYCIN 1 GM in IV D5W 250 ML IV ONE (15:00)
[2019-05-19] MEDS ORDERED: ONDANSETRON HCL/PF - ER 4 MG/2 ML VIAL IV ONE (15:00)
[2019-05-19] MEDS ORDERED: ONDANSETRON HCL/PF 4 MG/2 ML VIAL ONE (15:07)
[2019-05-19 15:12] LABS: ALANINE AMINOTRANSFERASE 24 U/L (12-78); ALBUMIN 3.2 g/dL (3.4-5.0); ALKALINE PHOSPHATASE 67 U/L (46-116); ASPARTATE AMINOTRANSFERASE 21 U/L (15-37); B-TYPE NATRIURETIC PEPTIDE 166 PG/ML (0-125); BILIRUBIN,TOTAL 0.3 mg/dL (0.2-1.0); CALCIUM, SERUM 9.8 mg/dL (8.5-10.1); CARBON DIOXIDE 28 mmol/L (21-32); CHLORIDE 96 mmol/L (98-107); CREATININE 1.6 mg/dL (0.6-1.3); GLUCOSE 143 mg/dL (74-106); SODIUM SERUM 129 mmol/L (136-145); TOTAL PROTEIN, SERUM 7.3 g/dL (6.4-8.2); UREA NITROGEN, BLOOD 36 mg/dL (7-18)
[2019-05-19 15:17] LABS: POTASSIUM 5.9 mmol/L (3.5-5.1)
--- NOTE | 2019-05-19 15:58 | NUR ---
CALLED NURSING SUP REQUESTED MEDSURG BED
--- NOTE | 2019-05-19 16:17 | NUR ---
[facility], DX CELLULITIS, NIDHI ROSA MEDICAID BUSINESS ANALYST ACCEPTED
--- NOTE | 2019-05-19 17:03 | NUR ---
REPORT GIVEN TO VERO ROBERSON FOR DYLLAN; PT WILL BE TRANSPORTED TO 2ND FLOOR MS
[2019-05-19 17:05] VITALS: BP 132/76
[2019-05-19] MEDS ORDERED: ACETAMINOPHEN 325 MG TABLET PO PRN (17:30)
[2019-05-19] MEDS ORDERED: TRAMADOL HCL 50 MG TABLET PO PRN (17:30)
[2019-05-19] MEDS ORDERED: SODIUM POLYSTYRENE SULFONATE 15 G/60 ML BOTTLE PO ONE (17:30)
[2019-05-19] MEDS ORDERED: HYDROCODONE/APAP 5/325MG 1 EACH TABLET PO PRN (17:30)
[2019-05-19] MEDS ORDERED: ONDANSETRON HCL/PF 4 MG/2 ML VIAL IVP PRN (17:30)
[2019-05-19] MEDS ORDERED: ZOLPIDEM TARTRATE 5 MG TABLET PO PRN (17:30)
[2019-05-19] MEDS ORDERED: MAG HYDROX/AL HYDROX/SIMETH 30 ML UDC PO PRN (17:30)
[2019-05-19] MEDS ORDERED: MORPHINE SULFATE INJ 2 MG/ML DISP.SYRIN IV PRN (17:30)
[2019-05-19] MEDS ORDERED: DEXTROSE 50%-WATER 50 ML DISP.SYRIN IV PRN (17:30)
[2019-05-19] MEDS ORDERED: MAGNESIUM HYDROXIDE 30 ML UDC PO PRN (17:30)
[2019-05-19] MEDS ORDERED: VANCOMYCIN 500 MG in IV D5W 100ml IV ONE (18:00)
[2019-05-19] MEDS: BLOOD SUGAR DIAGNOSTIC 1 EACH STRIP VI SCH ×2 (18:01→21:11)
[2019-05-19] MEDS: INSULIN REGULAR, HUMAN 100 UNIT/ML 3 ML VIAL SQ PRN (18:01)
[2019-05-19] MEDS ORDERED: FEE PK DOSING 1 MIN EA MC ONE ×2 (18:03→18:04)
--- NOTE | 2019-05-19 18:27 | NUR ---
MS RN ADMITTING NOTES ADMITTED A 63 Y/O FEMALE TO UNIT VIA GURNEY AT 1700 ACCOMPANIED BY E.R NURSE DIOGO. A/O X4. ABLE TO MAKE NEEDS KNOWN. NO C/O PAIN OR DISCOMFORTS VOICED AT THIS TIME. PT ORIENTED TO UNIT, ROOM AND STAFF. ON ROOM AIR, BREATHING EVEN AND UNLABORED. V/S TAKEN AND RECORDED. PHYSICAL ASSESSMENT DONE. PHOTOS OF SKIN ISSUES TAKEN AND FILED ON CHART. ABDOMEN SOFT, NON-DISTENDED WITH POSITIVE BOWEL SOUNDS ON FOUR QUADRANTS. LUNGS CLEAR ON AUSCULTATION. PT WITH IV ACCESS ON RAC G #18 INTACT AND PATENT, IVF TO BE STARTED. SAFETY MEASURES INITIATED. BED PLACED IN LOW LOCKED POSITION WITH SIDE RAILS UP X2. CALL LIGHT PLACED WITHIN EASY REACH OF PT. ALL ORDERS IN AND CARRIED OUT. WILL ENDORSED TO HORSE SHOER NURSE FOR DYLLAN.
[2019-05-19] MEDS: IV NS 0.9% 1,000 ML IV PRN (18:52)
--- NOTE | 2019-05-19 19:59 | NUR ---
MS/RN OPENING NOTES RECEIVED PATIENT IN BED, HOB ELEVATED, CAN RESPOND TO QIESTIONS, RESPIRATIONS EVEN AND UNLABORED, SKIN WARM TO TOUCH, DENIES PAIN. NO GUARDING OR GRIMACE. IV SITE ON RIGHT ARM /AC ,PATENT WITH NO S/S OF INFILTRATION, IV ANTIBIOTIC INFUSING. USED BED ZULETA, REQUIRE ASSISTANCE, HAD DOPPLER OF LEGS DONE TO RULE OUT DVT. NEGATIVE RESULT. WILL MONITOR. FOR ANY CHANGES. RECEIVED ENDORSEMENT FROM AM RN FOR DYLLAN. BED LOCKED, CALL LIGHTS WITHIN REACH.
[2019-05-19 20:00] VITALS: BP 121/59
[2019-05-19] MEDS: ENOXAPARIN SODIUM 40 MG/0.4 ML DISP.SYRIN SQ SCH (20:45)
[2019-05-19] MEDS: *INSULIN REGULAR(HUMULIN R)HUM 100 UNIT/ML VIAL SQ PRN (21:26)
[2019-05-20] MEDS: BLOOD SUGAR DIAGNOSTIC 1 EACH STRIP VI SCH ×4 (06:18→21:56)
[2019-05-20 06:24] LABS: BASOPHILS % (AUTO) 0.8 % (0.0-2.0); EOSINOPHILS % (AUTO) 8.7 % (0.0-6.0); HEMATOCRIT 30 % (33-45); LYMPHOCYTES # (AUTO) 0.8 /CMM (0.8-4.8); LYMPHOCYTES % (AUTO) 15.6 % (20.0-44.0); MEAN CORPUSCULAR HGB CONC 33 g/dl (31.0-36.0); MEAN CORPUSCULAR VOLUME 101 fL (82-100); MONOCYTES # (AUTO) 0.4 /CMM (0.1-1.30); MONOCYTES % (AUTO) 8.6 % (2.0-12.0); NEUTROPHILS # (AUTO) 3.3 /CMM (1.8-8.9); NEUTROPHILS % (AUTO) 66.3 % (43.0-81.0); PLATELET COUNT (AUTO) 172 /CMM (150-450); RED BLOOD CELL COUNT(AUTO) 3.01 MIL/uL (4.0-5.2); WHITE BLOOD COUNT (AUTO) 4.9 K/uL (4.3-11.0)
[2019-05-20] MEDS: INSULIN REGULAR, HUMAN 100 UNIT/ML 3 ML VIAL SQ PRN ×3 (06:38→17:21)
[2019-05-20 06:54] LABS: APPEARANCE,URINE CLOUDY (CLEAR); BILIRUBIN,URINE NEGATIVE (NEGATIVE); BLOOD, URINE 2+ Ery/uL (NEGATIVE); COLOR,URINE YELLOW (YELLOW); KETONES,URINE NEGATIVE (NEGATIVE); LEUKOCYTE ESTERASE ,URINE 2+ (NEGATIVE); NITRITE, URINE POSITIVE (NEGATIVE); PROTEIN,URINE 1+ mg/dl (NEGATIVE); UGLUCOSE NEGATIVE (NEGATIVE); UROBILINOGEN,URINE 0.2 EU/dL (0.2)
[2019-05-20 06:59] LABS: ALBUMIN 2.9 g/dL (3.4-5.0); BILIRUBIN,TOTAL 0.2 mg/dL (0.2-1.0); CALCIUM, SERUM 9.5 mg/dL (8.5-10.1); CREATININE 1.9 mg/dL (0.6-1.3); MAGNESIUM 2.2 mg/dL (1.8-2.4); PHOSPHORUS 4.7 mg/dL (2.5-4.9); POTASSIUM 5.2 mmol/L (3.5-5.1); TOTAL PROTEIN, SERUM 6.5 g/dL (6.4-8.2)
--- NOTE | 2019-05-20 07:15 | NUR ---
200-1 MS/RN NOTES PATIENT ABLE TO SLEEP DURING THE NIGHT, KEPT SKIN INTACT AND DRY, NO PAIN VERBALIZED AND REPORTED,.REQUIRE EXTENSIVE ASSISTANCE IN ALL NEEDS, WITH ORDER FOR MARY LOU MLILARD MD AWARE CALL LIGHTS WITHIN REACH, BED LOCKED, CALLIGHTS WITHIN REACH. WILL MONITOR AND ENDORSE TO AM RN FOR DYLLAN.
[2019-05-20] MEDS: LEVOTHYROXINE SODIUM 50 MCG TABLET PO SCH (07:19)
--- NOTE | 2019-05-20 07:29 | NUR ---
MS RN OPENING NOTES RECEIVED PATIENT AWAKE IN BED IN NO ACUTE SIGNS OF DISTRESS. HOB ELEVATED. A/O X4. ABLE TO MAKE NEEDS KNOWN, DENIES PAIN OR ANY DISCOMFORTS AT THIS TIME. ON ROOM AIR, RESPIRATIONS EVEN AND UNLABORED. IV ACCESS ON TO RAC G#18 G INTACT AND PATENT, IVF OF NS @ 100ML/HR INFUSING WELL, NO S/S OF INFILTRATIONS NOTED. BARRETO IN PLACE AND ACTIVELY DRAINING SLIGHTLY CLOUDY YELLOW URINE TO BEDSIDE URINARY BAG. SAFETY MEASURES IN PLACE. BED IN LOW LOCKED POSITION WITH SR UP X2. WILL CONTINUE TO MONITOR ACCORDINGLY.
[2019-05-20 07:52] LABS: RBC,URINE 0-2 /HPF (0-2)
[2019-05-20 07:53] LABS: BACTERIA,URINE Few /HPF (None Seen); SQUAMOUS EPITHELIAL CELL,UR Rare /HPF (None Seen); WBC,URINE 20-30 /HPF (0-3)
[2019-05-20 08:00] VITALS: BP 113/54
[2019-05-20] MEDS ORDERED: SODIUM POLYSTYRENE SULFONATE 15 G/60 ML BOTTLE PO ONE (08:00)
[2019-05-20] MEDS: FLUTICASONE/VILANTEROL 1 EACH BLST.W.DEV IH SCH (08:48)
[2019-05-20] MEDS: GEMFIBROZIL 600 MG TABLET PO SCH ×2 (08:48→16:39)
[2019-05-20] MEDS: ALLOPURINOL 100 MG TABLET PO SCH (08:49)
[2019-05-20] MEDS: DIGOXIN 0.25 MG TABLET PO SCH (08:50)
[2019-05-20] MEDS: DIVALPROEX SODIUM 250 MG TABLET.DR PO SCH ×3 (08:50→16:39)
[2019-05-20] MEDS: ASCORBIC ACID 500 MG TABLET PO SCH (08:50)
[2019-05-20] MEDS: ASPIRIN EC 81 MG TABLET.DR PO SCH (08:50)
[2019-05-20] MEDS: SPIRONOLACTONE 25 MG TABLET PO SCH (08:51)
[2019-05-20] MEDS: MAGNESIUM OXIDE 400 MG TABLET PO SCH ×2 (08:51→16:40)
[2019-05-20] MEDS: BENZTROPINE MESYLATE (1 MG) 1 MG TABLET PO SCH (08:51)
[2019-05-20] MEDS: FUROSEMIDE 20 MG TABLET PO SCH (08:51)
[2019-05-20 08:52] LABS: THYROID STIMULATING HORMONE 7.401 uIU/mL (0.358-3.74)
[2019-05-20] MEDS: VALSARTAN 40 MG TABLET PO SCH ×2 (08:52→16:46)
[2019-05-20] MEDS ORDERED: INSULIN GLARGINE, 100 UNIT/ML CARTRIDGE SQ SCH (09:00)
--- NOTE | 2019-05-20 09:00 | NUR ---
RN MS NOTES RECEIVED LAB RESULTS OF POTASSIUM WITH A LEVEL OF 5.2. 60GM OF KAYEXALATE GIVEN ORDERED STEPHEN WELL. WILL CONTINUE TO MONITOR.
[2019-05-20] MEDS: INSULIN GLARGINE, 100 UNIT/ML CARTRIDGE SQ SCH ×2 (09:11→17:23)
--- NOTE | 2019-05-20 11:11 | NUR ---
WOUND CARE CONSULT WOUND CARE RECEIVED CONSULT FOR BLE CELLULITIS. WOUND CARE WILL DEFER CONSULT AND TREATMENT PLANS TO PLASTIC SURGICAL TEAM INCLUDING DPMahamed CATALAN AT THIS TIME. PLASTIC SURGICAL TEAM AND DPMahamed CATALAN HAVE BEEN NOTIFIED OF THIS CONSULT. PATIENT WITH FRANKLIN AT 21, PATIENT WT 348LBS, PATIENT IS OK WITH REGULAR HOSPITAL BED, ABLE TO MOVE INDEPENDENTLY, OFFERED BARIATRIC BED AND PATIENT HAS REFUSED BARIATRIC BED. WILL SEE PRN.
[2019-05-20] MEDS: CLOTRIMAZOLE 1% 15 GM TUBE TP SCH ×2 (13:10→16:44)
[2019-05-20] MEDS: HYDROGEL DRESSING 90 GM TUBE TP SCH ×2 (13:10→21:18)
--- NOTE | 2019-05-20 14:04 | NUR ---
MS RN NOTES (WOUND) PATIENT SEEN BY YUE MIMS AND DEBRIDEMENT OF SACRAL WOUND DONE STEPHEN WELL. . SEEN AND EVAL BY BURAK MINAYA FRAMING CARPENTER FOR ID CONSULT WEITH ORDER TO COLLECT WOUND SPECIMEN FOR BLE FOR WOUND CULTURE. BLE SPECIMEN OF WOUND COLLECTED AND NOTIFIED LAB. WILL CONTINUE TO MONITOR.
[2019-05-20] MEDS ORDERED: VANCOMYCIN 1.25 GM in IV D5W 500 ML IV SCH (15:00)
--- NOTE | 2019-05-20 15:51 | NUR ---
RN NOTES PATIENT'S PRIVATE BUSINESS OBJECTS DEVELOPER FROM [facility] AND REQUESTED TO HAVE A PT EVAL AND THERAPY. JARROD LEE MADE AWARE WITH ORDER TO DO PT EVAL.
[2019-05-20 16:00] VITALS: BP 118/55
--- NOTE | 2019-05-20 16:20 | NUR ---
RN MS NOTES (LAB RESULTS) RECEIVED A CALL FROM PIG MACHINE CRANE OPERATOR KEITH ARNOLD AND WAS INFORMED THAT PATIENT IS GRAM POSTIVE COCCI IN CLUSTERS SEEN ON GRAM STAIN. PATIENT ALSO NOTED WITH SLIGHT GROWTH POSITIVE MRSA OF NARES. JARROD LEE MADE AWARE WITH ORDER TO START BACTROBAN OINTMENT BID TO BOTH NOSTRILS. CONTACT ISOLATION INITIATED AND PATIENT INFORMED. WILL CARRY OUT ORDERS
[2019-05-20] MEDS: Z GUARD REMEDY 2 OZ OINT TP PRN (17:22)
--- NOTE | 2019-05-20 18:45 | NUR ---
MS RN CLOSING NOTES PATIENT IN BED AWAKE AND RESTING AT MODERATE HIGH BACKREST POSITION. A/O X3-4. ABLE TO MAKE NEEDS KNOWN. ON ROOM AIR, TOLERATING WELL WITH NO SOB NOTED THROUGHOUT THE DAY. DRESSINGS TO B/L LOWER EXT C/D/I. CONTACT PRECAUTIONS FOR MRSA OF NARES MAINTAINED. IV ACCESS ON TO RAC G#18 INTACT AND PATENT, IVF OF NS @ 100ML/HR INFUSING WELL, NO S/S OF INFILTRATIONS NOTED. BARRETO IN PLACE AND ACTIVELY DRAINING SLIGHTLY CLOUDY YELLOW URINE TO BEDSIDE URINARY BAG, BARRETO CARE DONE. PT TURNED AND REPOSITIONED Q 2HRS AND PRN. ALL NEEDS AND CARE ATTENDED WELL. SAFETY MEASURES KEPT IN PLACE. BED IN LOW LOCKED POSITION WITH SR UP X2. CALL LIGHT IN REACH. WILL ENDORSE TO MANAGER NEWS NURSE FOR CONTINUITY OF CARE.
--- NOTE | 2019-05-20 19:00 | NUR ---
MS RN OPENING NOTES Received patient with head of bed elevated, alert, oriented x 4. Breathing even and unlabored. Not in any distress, on room air. Peripheral IV infusing at 100mL/hr. Kimble catheter in place, draining slightly cloudy yellow urine. Safety measures in place; call light within reach, bed in low, locked position. Will continue to monitor accordingly
[2019-05-20 20:00] VITALS: BP 132/75
[2019-05-20] MEDS: ENOXAPARIN SODIUM 40 MG/0.4 ML DISP.SYRIN SQ SCH (21:13)
[2019-05-20] MEDS: MUPIROCIN OINT 2% 22 GM TUBE SCH (21:18)
[2019-05-20] MEDS: ARIPIPRAZOLE 5 MG TABLET PO SCH (21:51)
[2019-05-20] MEDS: *INSULIN REGULAR(HUMULIN R)HUM 100 UNIT/ML VIAL SQ PRN (21:53)
--- NOTE | 2019-05-20 21:55 | NUR ---
RN NOTES BSL- 196MG/DL. 3 units of insulin given per sliding scale
[2019-05-21] MEDS: IV NS 0.9% 1,000 ML IV PRN ×2 (01:06→22:34)
--- NOTE | 2019-05-21 06:18 | NUR ---
MS RN CLOSING NOTES Patient resting in bed with head of bed elevated, alert, oriented x 4. Breathing even and unlabored. Not in any distress, on room air. Peripheral IV infusing at 100mL/hr. Kimble catheter in place, draining well. No acute changes overnight. Safety measures in place; call light within reach, bed in low, locked position. Will endorse DYLLAN to oncoming RN
[2019-05-21] MEDS: BLOOD SUGAR DIAGNOSTIC 1 EACH STRIP VI SCH ×4 (06:40→21:51)
[2019-05-21] MEDS: INSULIN REGULAR, HUMAN 100 UNIT/ML 3 ML VIAL SQ PRN ×3 (06:41→16:51)
[2019-05-21 06:47] LABS: BASOPHILS # (AUTO) 0.1 /CMM (0.0-0.2); BASOPHILS % (AUTO) 0.8 % (0.0-2.0); HEMATOCRIT 30 % (33-45); HEMOGLOBIN 9.8 g/dL (11.5-14.8); LYMPHOCYTES # (AUTO) 0.8 /CMM (0.8-4.8); LYMPHOCYTES % (AUTO) 12.4 % (20.0-44.0); MEAN CORPUSCULAR HGB CONC 33 g/dl (31.0-36.0); MEAN CORPUSCULAR VOLUME 101 fL (82-100); MONOCYTES # (AUTO) 0.6 /CMM (0.1-1.30); MONOCYTES % (AUTO) 9.6 % (2.0-12.0); NEUTROPHILS # (AUTO) 4.4 /CMM (1.8-8.9); NEUTROPHILS % (AUTO) 70.2 % (43.0-81.0); PLATELET COUNT (AUTO) 151 /CMM (150-450); RED BLOOD CELL COUNT(AUTO) 2.94 MIL/uL (4.0-5.2); WHITE BLOOD COUNT (AUTO) 6.2 K/uL (4.3-11.0)
[2019-05-21 06:51] LABS: CALCIUM, SERUM 8.6 mg/dL (8.5-10.1); CREATININE 1.9 mg/dL (0.6-1.3); POTASSIUM 5.2 mmol/L (3.5-5.1)
[2019-05-21 08:00] VITALS: BP 131/69
--- NOTE | 2019-05-21 08:00 | NUR ---
RN Notes Received patient in the bed a/o x4.Patient has a mrsa of nares isolation, obese. Patient has no acute respiratory distress, unlabored, bs-149mg/dl. infusing ns at 100 ml/hr intact, f/c drain light yellow output, encouraged to express feelings and concerns. administered scheduled medication, v/s stable, assist patient turn and reposition q 2 hr. patient eating breakfast, elevated lower extremities using pillows. call light within to reach. Safety precaution maintained all the time.
[2019-05-21 08:50] VITALS: BP 131/69
[2019-05-21] MEDS: ASCORBIC ACID 500 MG TABLET PO SCH (09:31)
[2019-05-21] MEDS: MAGNESIUM OXIDE 400 MG TABLET PO SCH ×2 (09:31→16:27)
[2019-05-21] MEDS: ASPIRIN EC 81 MG TABLET.DR PO SCH (09:31)
[2019-05-21] MEDS: BENZTROPINE MESYLATE (1 MG) 1 MG TABLET PO SCH (09:32)
[2019-05-21] MEDS: SPIRONOLACTONE 25 MG TABLET PO SCH (09:32)
[2019-05-21] MEDS: ALLOPURINOL 100 MG TABLET PO SCH (09:32)
[2019-05-21] MEDS: FUROSEMIDE 20 MG TABLET PO SCH (09:32)
[2019-05-21] MEDS: DIVALPROEX SODIUM 250 MG TABLET.DR PO SCH ×3 (09:32→16:27)
[2019-05-21] MEDS: LEVOTHYROXINE SODIUM 50 MCG TABLET PO SCH (09:32)
[2019-05-21] MEDS: GEMFIBROZIL 600 MG TABLET PO SCH ×2 (09:34→16:28)
[2019-05-21] MEDS: FLUTICASONE/VILANTEROL 1 EACH BLST.W.DEV IH SCH (09:34)
[2019-05-21] MEDS: INSULIN GLARGINE, 100 UNIT/ML CARTRIDGE SQ SCH ×2 (09:37→16:49)
[2019-05-21] MEDS: HYDROGEL DRESSING 90 GM TUBE TP SCH ×2 (09:39→21:49)
[2019-05-21] MEDS: CLOTRIMAZOLE 1% 15 GM TUBE TP SCH ×2 (09:39→18:20)
[2019-05-21] MEDS: VALSARTAN 40 MG TABLET PO SCH (09:41)
[2019-05-21] MEDS: MUPIROCIN OINT 2% 22 GM TUBE SCH ×2 (09:45→21:49)
[2019-05-21] MEDS: DIGOXIN 0.25 MG TABLET PO SCH (09:50)
--- NOTE | 2019-05-21 10:01 | NUR ---
RN NOTES ADMINISTERED ULTRAM 100 MG PO PRN FOR LEFT TOE PAIN 05/09 PER PATIENT REQUEST, V/S TAKEN STABLE, ADMINISTERED SCHEDULED MEDICATION. ASSIST TURN AND REPOSITION Q 2 HR. CALL LIGHT WITHIN TO REACH. CONTINUED MONITORING.
[2019-05-21] MEDS ORDERED: SODIUM POLYSTYRENE SULFONATE 15 G/60 ML BOTTLE PO ONE (11:00)
--- NOTE | 2019-05-21 13:03 | NUR ---
rn notes bs-189 mg/dl coverage given, administered Kayexalate for elevated KCL level, seen patient WELFARE OFFICER Obdulio, and PT. Per PT patient get out of bed stand and back to the bed. continued monitoring.
[2019-05-21 16:03] VITALS: BP 119/59
--- NOTE | 2019-05-21 17:00 | NUR ---
RN NOTES BS-160 MG/DL COVERAGE GIVEN, ALSO ADMINISTERED SCHEDULED MEDICATION, V/S STABLE, AFTER A FEW TRY UNABLE TO PUT IV ACCESS, CALLED PET AMBASSADOR NIDHI, AND MACHINE SHOP REPAIR TECHNICIAN FOR MIDLINE INSERTION. CONTINUED MONITORING.
[2019-05-21] MEDS: VANCOMYCIN 1 GM in IV D5W 250 ML IV SCH (18:21)
--- NOTE | 2019-05-21 18:30 | NUR ---
RN NOTES PATIENT STABLE, NO ACUTE RESPIRATORY DISTRESS, V/S STABLE.WAITING FOR MIDLINE INSERTION. ENDORSED ONCOMING NURSE FOLLOW PLAN OF CARE.
--- NOTE | 2019-05-21 19:35 | NUR ---
RN OPENING NOTES RECEIVED PATIENT AWAKE, RESTING COMFORTABLY IN BED. PATIENT IS A/O X 4. NO SIGNS OF RESPIRATORY DISTRESS. PATIENT DENIES SHORTNESS OF BREATH NOTED. BARRETO CATH IN PLACE, DRAINING WELL. PATIENT JUST HAD MIDLINE INSERTION AT 1925, RIGHT UPPER ARM G20. SAFETY PRECAUTIONS IMPLEMENTED; CALL LIGHT WITHIN REACH, BED LOW, BED LOCKED. WILL CONTINUE TO MONITOR PATIENT THROUGHOUT THE SHIFT.
[2019-05-21 20:00] VITALS: BP 124/62
[2019-05-21] MEDS ORDERED: ARIPIPRAZOLE 5 MG TABLET ONE (21:39)
[2019-05-21] MEDS: ENOXAPARIN SODIUM 40 MG/0.4 ML DISP.SYRIN SQ SCH (21:51)
[2019-05-21] MEDS: ARIPIPRAZOLE 5 MG TABLET PO SCH (21:53)
--- NOTE | 2019-05-21 21:53 | NUR ---
RN NOTES PATIENT MEDICATION ABILIFY 15 MG (3 TABS) WAS NOT IN STOCK IN MS-2 PIXIS. I HAD CHARGE NURSE, ABDOULAYE PULL IT OUT MANUALLY FROM MS3. MEDICATION NOT SCANNING BARCODE. CONFIRMED RIGHT MEDICATION, RIGHT DOSAGE WITH ANOTHER RN, RVI. WILL ADMINISTER MEDICATION.
[2019-05-21] MEDS: *INSULIN REGULAR(HUMULIN R)HUM 100 UNIT/ML VIAL SQ PRN (21:57)
--- NOTE | 2019-05-21 22:49 | NUR ---
RN NOTES REGULAR INSULIN WAS GIVEN AT 2200. SNACKS OFFERED. WILL CONTINUE TO MONITOR PATIENT.
[2019-05-22 06:46] LABS: BASOPHILS % (AUTO) 0.5 % (0.0-2.0); EOSINOPHILS % (AUTO) 6.3 % (0.0-6.0); HEMATOCRIT 30 % (33-45); HEMOGLOBIN 9.7 g/dL (11.5-14.8); LYMPHOCYTES # (AUTO) 0.7 /CMM (0.8-4.8); LYMPHOCYTES % (AUTO) 10.6 % (20.0-44.0); MEAN CORPUSCULAR HGB CONC 33 g/dl (31.0-36.0); MEAN CORPUSCULAR VOLUME 102 fL (82-100); MONOCYTES # (AUTO) 0.7 /CMM (0.1-1.30); MONOCYTES % (AUTO) 10.1 % (2.0-12.0); NEUTROPHILS # (AUTO) 4.9 /CMM (1.8-8.9); NEUTROPHILS % (AUTO) 72.5 % (43.0-81.0); PLATELET COUNT (AUTO) 148 /CMM (150-450); RED BLOOD CELL COUNT(AUTO) 2.92 MIL/uL (4.0-5.2); WHITE BLOOD COUNT (AUTO) 6.8 K/uL (4.3-11.0)
--- NOTE | 2019-05-22 06:52 | NUR ---
RN CLOSING NOTES PATIENT ASLEEP, RESTING IN BED COMFORTABLY WITH HOB ELEVATED. A/O X 4 WHEN AWAKE. AROUSABLE WHEN SPOKEN TO. NO SIGNS OF RESPIRATORY DISTRESS OR SHORTNESS OF BREATH. ON ROOM AIR. IV RIGHT UPPER ARM MIDLINE INTACT AND PATENT. BARRETO CATHETER IN PLACE, DRAINING WELL. NO FACIAL GRIMACING OR DISCOMFORT NOTED THAT INDICATES PAIN. NO ACUTE CHANGES OVERNIGHT. PATIENT TURNED Q2H. CONTACT PRECAUTIONS FOR MRSA OF NARES MAINTAINED. ALL DUE MEDICATION GIVEN. ALL NEEDS WERE ADDRESSED. SAFETY PRECAUTIONS IMPLEMENTED; CALL LIGHT WITHIN REACH, BED LOW, BED LOCKED, SIDE RAILS UP X2. WILL ENDORSE CONTINUITY OF CARE TO ONCOMING AM RN.
[2019-05-22 06:56] LABS: CALCIUM, SERUM 8.5 mg/dL (8.5-10.1); CREATININE 1.7 mg/dL (0.6-1.3); POTASSIUM 4.7 mmol/L (3.5-5.1)
[2019-05-22] MEDS: BLOOD SUGAR DIAGNOSTIC 1 EACH STRIP VI SCH ×4 (07:08→22:09)
--- NOTE | 2019-05-22 07:21 | NUR ---
MS RN OPENING NOTES RECEIVED PT IN BED WITH HOB ELEVATED, SLEEPING COMFORTABLY. PT IS EASILY AROUSABLE. A/O X3, AFEBRILE. RESPIRATIONS ARE EVEN AND UNLABORED, NOT IN ANY ACUTE DISTRESS NOTED. PT DENIES ANY PAIN AT THIS TIME, NO C/O SOB, N/V. MIDLINE TO GUSTAVO INTACT, NO INFILTRATION NOTED. DRESSING KEPT CLEAN AND DRY. SAFETY MEASURES ARE IN PLACE. INSTRUCTED PT TO USE CALL LIGHT WHEN ASSISTANCE IS NEEDED, CALL LIGHT IS LEFT WITHIN REACH. WILL MONITOR THROUGHOUT SHIFT FOR CONTINUITY OF CARE.
[2019-05-22 08:00] VITALS: BP 129/64
[2019-05-22] MEDS: GEMFIBROZIL 600 MG TABLET PO SCH ×2 (08:10→16:57)
[2019-05-22] MEDS: MAGNESIUM OXIDE 400 MG TABLET PO SCH ×2 (08:10→16:57)
[2019-05-22] MEDS: BENZTROPINE MESYLATE (1 MG) 1 MG TABLET PO SCH (08:10)
[2019-05-22] MEDS: ASPIRIN EC 81 MG TABLET.DR PO SCH (08:10)
[2019-05-22] MEDS: ALLOPURINOL 100 MG TABLET PO SCH (08:10)
[2019-05-22] MEDS: LEVOTHYROXINE SODIUM 50 MCG TABLET PO SCH (08:10)
[2019-05-22] MEDS: ASCORBIC ACID 500 MG TABLET PO SCH (08:10)
[2019-05-22] MEDS: DIGOXIN 0.25 MG TABLET PO SCH (08:10)
[2019-05-22] MEDS: DIVALPROEX SODIUM 250 MG TABLET.DR PO SCH ×3 (08:10→16:56)
[2019-05-22] MEDS: FLUTICASONE/VILANTEROL 1 EACH BLST.W.DEV IH SCH (08:13)
[2019-05-22] MEDS: MUPIROCIN OINT 2% 22 GM TUBE SCH ×2 (08:13→22:15)
[2019-05-22] MEDS: CLOTRIMAZOLE 1% 15 GM TUBE TP SCH ×2 (08:14→16:57)
[2019-05-22] MEDS: HYDROGEL DRESSING 90 GM TUBE TP SCH ×2 (08:17→22:15)
[2019-05-22] MEDS: IV NS 0.9% 1,000 ML IV PRN ×2 (08:20→17:30)
[2019-05-22] MEDS: INSULIN GLARGINE, 100 UNIT/ML CARTRIDGE SQ SCH ×2 (08:22→16:58)
--- NOTE | 2019-05-22 09:30 | NUR ---
MS RN NOTES-- PT WAS SEEN AND EXAMINED BY JARROD TERRELL.
[2019-05-22] MEDS: INSULIN REGULAR, HUMAN 100 UNIT/ML 3 ML VIAL SQ PRN ×2 (11:58→16:59)
--- NOTE | 2019-05-22 12:00 | NUR ---
MS RN NOTES-- PT WAS SEEN AND EXAMINED BY MANE MAYEN ID.
[2019-05-22 16:00] VITALS: BP 143/64
--- NOTE | 2019-05-22 16:30 | NUR ---
MS RN NOTES-- DRESSING CHANGE DONE TO SACRAL, BLE. PT TOLERATED WELL.
[2019-05-22] MEDS: CEFTRIAXONE 1 G in IV D5W 50 ML IV SCH (16:56)
[2019-05-22] MEDS: VANCOMYCIN 1 GM in IV D5W 250 ML IV SCH (17:31)
--- NOTE | 2019-05-22 18:35 | NUR ---
MS RN CLOSING NOTES NEEDS MET AND ANTICIPATED. PT REMAINS A/O X3, AFEBRILE. RESPIRATIONS ARE EVEN AND UNLABORED, NOT IN ANY ACUTE DISTRESS NOTED. PT DENIES ANY PAIN AT THIS TIME, NO C/O SOB, N/V. MIDLINE TO GUSTAVO INTACT, NO INFILTRATION NOTED. DRESSING KEPT CLEAN AND DRY. SAFETY MEASURES ARE IN PLACE. REMINDED PT TO USE CALL LIGHT WHEN ASSISTANCE IS NEEDED, CALL LIGHT IS LEFT WITHIN REACH. WILL MONITOR THROUGHOUT SHIFT FOR CONTINUITY OF CARE.
--- NOTE | 2019-05-22 19:37 | NUR ---
KAROL OPEN NOTES RECEIVED PATIENT AWAKE IN BED. A/OX3. NO SIGNS OF DISTRESS OR DISCOMFORT. BREATHING EVEN AND UNLABORED. ON 2LPM O2 VIA NC. HAS GUSTAVO MIDLINE WITH NS INFUSING, PATENT AND INTACT, NO SIGNS OF REDNESS OR INFILTRATION. HAS F/C INTACT DRAINING CLOUDY YELLOW FLUID. DENIES ANY PAIN AT THIS TIME. BED IN LOW LOCKED POSITION WITH SIDE RAILS X2. CALL LIGHT WITHIN REACH. ENDORSED TO AM SHIFT FOR DYLLAN. Addendum: 05/23/19 at 0742 by FLOR CASTELLANOS RN ERROR: PATIENT NOT ENDORSED TO AM SHIFT. Addendum: 05/23/19 at 0748 by FLOR CASTELLANOS RN ERROR: PATIENT IS NOT ON O2 VIA NC.
[2019-05-22 20:00] VITALS: BP 144/69
[2019-05-22] MEDS: ARIPIPRAZOLE 5 MG TABLET PO SCH (22:09)
[2019-05-22] MEDS: ENOXAPARIN SODIUM 40 MG/0.4 ML DISP.SYRIN SQ SCH (22:12)
[2019-05-22] MEDS: *INSULIN REGULAR(HUMULIN R)HUM 100 UNIT/ML VIAL SQ PRN (22:12)
[2019-05-23] MEDS: IV NS 0.9% 1,000 ML IV PRN ×2 (05:37→15:31)
[2019-05-23] MEDS: BLOOD SUGAR DIAGNOSTIC 1 EACH STRIP VI SCH ×4 (06:47→21:33)
[2019-05-23] MEDS: INSULIN REGULAR, HUMAN 100 UNIT/ML 3 ML VIAL SQ PRN ×3 (06:48→16:35)
--- NOTE | 2019-05-23 07:10 | NUR ---
RN OPENING NOTE PT WAS RECEIVED IN BED AT LOWEST AND LOCKED POSITION WITH SIDE RAILS UP X2, A/O X3 BREATHING EVEN AND UNLABORED ON RA, NO CURRENT COMPLAINTS OF ANY DISTRESS OR PAIN AT THIS TIME, IV IS PATENT AND INTACT, NOTED TO HAVE BARRETO IN PLACE, SAFETY PRECAUTIONS IN PLACE, CALL LIGHT WITHIN REACH, WILL MONITOR ACCORDINGLY
--- NOTE | 2019-05-23 07:42 | NUR ---
RN CLOSING NOTES PATIENT RESTING IN BED. A/OX3. NO SIGNS OF DISTRESS OR DISCOMFORT. BREATHING EVEN AND UNLABORED. ON 2LPM O2 VIA NC. HAS GUSTAVO MIDLINE WITH NS INFUSING, PATENT AND INTACT, NO SIGNS OF REDNESS OR INFILTRATION. HAS F/C INTACT DRAINING CLOUDY YELLOW FLUID. DENIES ANY PAIN AT THIS TIME. ALL NEEDS MET. NO SIGNIFICANT CHANGES THROUGH THE NIGHT. PATIENT ASSISTED WITH REPOSITIONING Q2H. BED IN LOW LOCKED POSITION WITH SIDE RAILS X2. CALL LIGHT WITHIN REACH. ENDORSED TO AM SHIFT FOR DYLLAN. Addendum: 05/23/19 at 0747 by FLOR CASTELLANOS RN ERROR: PATIENT IS NOT ON O2 VIA NC.
[2019-05-23 08:00] VITALS: BP 149/79
[2019-05-23] MEDS: MAGNESIUM OXIDE 400 MG TABLET PO SCH ×2 (08:22→16:13)
[2019-05-23] MEDS: ASCORBIC ACID 500 MG TABLET PO SCH (08:22)
[2019-05-23] MEDS: LEVOTHYROXINE SODIUM 50 MCG TABLET PO SCH (08:22)
[2019-05-23] MEDS: DIVALPROEX SODIUM 250 MG TABLET.DR PO SCH ×3 (08:23→16:13)
[2019-05-23] MEDS: BENZTROPINE MESYLATE (1 MG) 1 MG TABLET PO SCH (08:23)
[2019-05-23] MEDS: ASPIRIN EC 81 MG TABLET.DR PO SCH (08:23)
[2019-05-23] MEDS: ALLOPURINOL 100 MG TABLET PO SCH (08:23)
[2019-05-23] MEDS: DIGOXIN 0.25 MG TABLET PO SCH (08:25)
[2019-05-23] MEDS: GEMFIBROZIL 600 MG TABLET PO SCH ×2 (08:27→16:13)
[2019-05-23] MEDS: INSULIN GLARGINE, 100 UNIT/ML CARTRIDGE SQ SCH ×2 (08:29→16:21)
[2019-05-23 08:31] LABS: BASOPHILS # (AUTO) 0.1 /CMM (0.0-0.2); BASOPHILS % (AUTO) 0.9 % (0.0-2.0); EOSINOPHILS % (AUTO) 9.1 % (0.0-6.0); HEMATOCRIT 31 % (33-45); LYMPHOCYTES # (AUTO) 0.8 /CMM (0.8-4.8); LYMPHOCYTES % (AUTO) 12.3 % (20.0-44.0); MEAN CORPUSCULAR HGB CONC 33 g/dl (31.0-36.0); MEAN CORPUSCULAR VOLUME 102 fL (82-100); MONOCYTES # (AUTO) 0.7 /CMM (0.1-1.30); MONOCYTES % (AUTO) 10.3 % (2.0-12.0); NEUTROPHILS # (AUTO) 4.5 /CMM (1.8-8.9); NEUTROPHILS % (AUTO) 67.4 % (43.0-81.0); PLATELET COUNT (AUTO) 158 /CMM (150-450); RED BLOOD CELL COUNT(AUTO) 2.99 MIL/uL (4.0-5.2); WHITE BLOOD COUNT (AUTO) 6.7 K/uL (4.3-11.0)
[2019-05-23] MEDS: FLUTICASONE/VILANTEROL 1 EACH BLST.W.DEV IH SCH (08:33)
[2019-05-23] MEDS: MUPIROCIN OINT 2% 22 GM TUBE SCH ×2 (08:33→22:01)
[2019-05-23] MEDS: CLOTRIMAZOLE 1% 15 GM TUBE TP SCH ×2 (08:34→16:17)
[2019-05-23] MEDS: HYDROGEL DRESSING 90 GM TUBE TP SCH ×2 (08:34→21:27)
[2019-05-23 08:35] LABS: CALCIUM, SERUM 8.9 mg/dL (8.5-10.1); CREATININE 1.4 mg/dL (0.6-1.3); POTASSIUM 4.7 mmol/L (3.5-5.1)
--- NOTE | 2019-05-23 11:26 | NUR ---
RN NOTE PT STATED SHE WAS TO TIRED TO STAND AND WORK WITH PT AT THIS TIME
[2019-05-23] MEDS: NEOMY SULF/BACITRAC ZN/POLY 15 GM TUBE TP SCH (11:50)
[2019-05-23] MEDS: CLOTRIMAZOLE/BETAMETASONE DIPROPIONATE 15 GM TUBE TP SCH ×2 (12:30→16:17)
[2019-05-23] MEDS: CEFTRIAXONE 1 G in IV D5W 50 ML IV SCH (15:24)
[2019-05-23 16:00] VITALS: BP 149/65
--- NOTE | 2019-05-23 16:40 | NUR ---
RN NOTE WOUND CARE DONE AT THIS TIME
[2019-05-23] MEDS: CEFEPIME 2 GM in IV D5W 100 ML IV SCH (17:36)
[2019-05-23] MEDS: VANCOMYCIN 1 GM in IV D5W 250 ML IV SCH (18:10)
--- NOTE | 2019-05-23 18:45 | NUR ---
RN CLOSING NOTE PT IN BED AT LOWEST AND LOCKED POSITION WITH SIDE RAILS UP X2, A/O X3 BREATHING EVEN AND UNLABORED ON RA WITH NO CURRENT COMPLAINTS OF ANY DISTRESS OR PAIN AT THIS TIME, IV IS PATENT AND INTACT, BARRETO IN PLACE, SAFETY PRECAUTIONS IN PLACE, CALL LIGHT WITHIN REACH, ALL NEEDS ATTENDED TO, WILL ENDORSE TO ATTORNEY AT LAW RN FOR DYLLAN.
--- NOTE | 2019-05-23 19:05 | NUR ---
MS ROBERSON OPENING NOTES: RECEIVED PT ON ROOM AIR AND IS TOLERATING WELL. PT WATCHING TELEVISION AT THIS TIME REQUESTING FOR A SNACK. GUSTAVO MIDLINE IS PATENT AND BEING INFUSED WITH VANCO AT THIS TIME. PT HAS BILATERAL LOWER DRESSINGS IN PLACE AND IS KEPT CLEAN AND DRY. PT HAS BARRETO CATH AND IS ATTACHED TO DRAINAGE BAG WITH YELLOW URINE DRAINING. BED KEPT IN LOW, LOCKED POSITION, AND SIDE RAILS X 2UP. WILL CONTINUE TO MONITOR PT. Addendum: 05/24/19 at 0412 by KEVIN DAVIS RN PT ALSO HAS L AC #18G AND IS PATENT AND INTACT. CURRENTLY H/L.
[2019-05-23 19:46] VITALS: BP 145/79
[2019-05-23] MEDS: ARIPIPRAZOLE 5 MG TABLET PO SCH (21:11)
[2019-05-23] MEDS: ENOXAPARIN SODIUM 40 MG/0.4 ML DISP.SYRIN SQ SCH (21:17)
[2019-05-23] MEDS: *INSULIN REGULAR(HUMULIN R)HUM 100 UNIT/ML VIAL SQ PRN (21:40)
--- NOTE | 2019-05-23 21:40 | NUR ---
MS RN NOTES: BLOOD SUGAR THIS PM WAS 266. 6 UNITS OF INSULIN WAS ADMINISTERED. SNACK GIVEN TO PT WELL. WILL CONTINUE TO MONITOR .
[2019-05-24 06:11] LABS: BASOPHILS % (AUTO) 0.5 % (0.0-2.0); EOSINOPHILS % (AUTO) 8.1 % (0.0-6.0); HEMATOCRIT 29 % (33-45); HEMOGLOBIN 9.7 g/dL (11.5-14.8); LYMPHOCYTES # (AUTO) 0.6 /CMM (0.8-4.8); LYMPHOCYTES % (AUTO) 8.5 % (20.0-44.0); MEAN CORPUSCULAR HGB CONC 33 g/dl (31.0-36.0); MEAN CORPUSCULAR VOLUME 101 fL (82-100); MONOCYTES # (AUTO) 0.6 /CMM (0.1-1.30); MONOCYTES % (AUTO) 9.2 % (2.0-12.0); NEUTROPHILS % (AUTO) 73.7 % (43.0-81.0); PLATELET COUNT (AUTO) 175 /CMM (150-450); WHITE BLOOD COUNT (AUTO) 6.8 K/uL (4.3-11.0)
[2019-05-24 06:24] LABS: CALCIUM, SERUM 9.1 mg/dL (8.5-10.1); CREATININE 1.3 mg/dL (0.6-1.3)
[2019-05-24] MEDS: INSULIN REGULAR, HUMAN 100 UNIT/ML 3 ML VIAL SQ PRN ×3 (06:33→16:56)
[2019-05-24] MEDS: BLOOD SUGAR DIAGNOSTIC 1 EACH STRIP VI SCH ×4 (06:34→21:11)
--- NOTE | 2019-05-24 06:46 | NUR ---
MS RN NOTES: BLOOD SUGAR THIS AM WAS 155. 2 UNITS OF INSULIN WAS ADMINISTERED. SNACK PROVIDED TO PT WELL.
--- NOTE | 2019-05-24 06:58 | NUR ---
MS RN CLOSING NOTES: ALL NEEDS WERE ATTENDED AND ANTICIPATED FOR. PT KEPT CLEAN, DRY, AND COMFORTABLE. PT TURNED AND REPOSITIONED Q2HRS. PT HAS BARRETO CATH AND IS ATTACHED TO BAG WITH URINE DRAINING. OUTPUT WAS 1,000ML. WOUND TX PERFORMED ORDERED. PT HAS GUSTAVO MIDLINE AND IS BEING INFUSED WITH IV NS AT 50ML/HR. PT ALSO HAS ANOTHER IV ON L AC AND IS PATENT AND INTACT .CURRENTLY H/L. PT SLEEPING COMFORTABLY AT THIS TIME. BED KEPT IN LOW, LOCKED POSITION, AND SIDE RAILS X 2UP. WILL ENDORSE TO AM NURSE FOR OCC.
[2019-05-24 08:00] VITALS: BP 150/77
--- NOTE | 2019-05-24 08:00 | NUR ---
MS RN OPENING NOTES: RECEIVED PT ON ROOM AIR AND IS TOLERATING WELL. PT WATCHING TELEVISION AT THIS TIME. WITH GUSTAVO MIDLINE IS PATENT AND BEING INFUSED WITH NS AT 50 ML/HR AT THIS TIME. PT HAS BILATERAL LOWER DRESSINGS IN PLACE AND IS KEPT CLEAN AND DRY. PT HAS BARRETO CATH AND IS ATTACHED TO DRAINAGE BAG WITH YELLOW URINE DRAINING MODERATE IN AMT. BED KEPT IN LOW, LOCKED POSITION, AND SIDE RAILS X 2UP. WILL CONTINUE TO MONITOR PT. NO S/S OF HYPO/HYPERGLYCEMIA.CALL LIGHT PLACED WITHIN REACH.
[2019-05-24] MEDS: ALLOPURINOL 100 MG TABLET PO SCH (08:42)
[2019-05-24] MEDS: BENZTROPINE MESYLATE (1 MG) 1 MG TABLET PO SCH (08:42)
[2019-05-24] MEDS: ASCORBIC ACID 500 MG TABLET PO SCH (08:42)
[2019-05-24] MEDS: GEMFIBROZIL 600 MG TABLET PO SCH ×2 (08:42→17:08)
[2019-05-24] MEDS: DIVALPROEX SODIUM 250 MG TABLET.DR PO SCH ×3 (08:42→17:08)
[2019-05-24] MEDS: MAGNESIUM OXIDE 400 MG TABLET PO SCH ×2 (08:43→17:08)
[2019-05-24] MEDS: DIGOXIN 0.25 MG TABLET PO SCH (08:43)
[2019-05-24] MEDS: ASPIRIN EC 81 MG TABLET.DR PO SCH (08:43)
[2019-05-24] MEDS: LEVOTHYROXINE SODIUM 50 MCG TABLET PO SCH (08:43)
[2019-05-24] MEDS: INSULIN GLARGINE, 100 UNIT/ML CARTRIDGE SQ SCH ×2 (08:52→17:17)
[2019-05-24] MEDS: FLUTICASONE/VILANTEROL 1 EACH BLST.W.DEV IH SCH (09:09)
[2019-05-24] MEDS: NEOMY SULF/BACITRAC ZN/POLY 15 GM TUBE TP SCH (09:09)
[2019-05-24] MEDS: CLOTRIMAZOLE 1% 15 GM TUBE TP SCH ×2 (09:09→17:31)
[2019-05-24] MEDS: MUPIROCIN OINT 2% 22 GM TUBE SCH ×2 (09:09→20:13)
[2019-05-24] MEDS: CLOTRIMAZOLE/BETAMETASONE DIPROPIONATE 15 GM TUBE TP SCH ×2 (09:10→17:31)
[2019-05-24] MEDS: HYDROGEL DRESSING 90 GM TUBE TP SCH ×2 (09:10→20:13)
[2019-05-24 16:00] VITALS: BP 144/64
[2019-05-24] MEDS: LACTOBACILLUS RHAMNOSUS GG 1 EACH CAP.SPRINK PO SCH (17:08)
[2019-05-24] MEDS: CEFEPIME 2 GM in IV D5W 100 ML IV SCH (17:08)
--- NOTE | 2019-05-24 18:44 | NUR ---
PT RESTING IN BED WATCHING TV DENIES PAIN OR DISTRESS.WOUND TX TO BLE.ELEVATED JOLIE HEELS WITH PILLOWS.CALL LIGHT PLACED WITHIN REACH. Addendum: 05/25/19 at 0005 by KEVIN DAVIS RN OFFERED TO CHANGE WOUND DRESSING ON JOLIE LOWER LEGS. PT REFUSED AND SAID IT WAS ALREADY DONE. NOTED THAT BOTH BILATERAL WOUND DRESSINGS ARE KEPT CLEAN AND DRY. WILL CONTINUE TO MONITOR. Addendum: 05/25/19 at 0517 by KEVIN DAVIS RN IGNORE TOP NOTE. DOCUMENTED ON WRONG ONE.
--- NOTE | 2019-05-24 19:30 | NUR ---
MS RN OPENING NOTES: RECEIVED PT ON ROOM AIR AND IS TOLERATING WELL. PT ASLEEP AT THIS TIME BUT IS EASILY AROUSABLE TO NAME AND TOUCH. PT HAS GUSTAVO MIDLINE AND IS BEING INFUSED WITH IV NS AT 50ML/HR. NO SOB NOTED. NO S/S OF DISTRESS. PT HAS BARRETO CATH AND IS ATTACHED TO DRAINAGE BAG WITH CLEAR YELLOW URINE DRAINING. BED KEPT IN LOW, LOCKED POSITION, AND SIDE RAILS X 2UP. BILATERAL LOWER LEGS DRESSING KEPT CLEAN AND DRY AND ELEVATED WITH A PILLOW, WILL CONTINUE TO MONITOR PT.
[2019-05-24 20:05] VITALS: BP 173/79
[2019-05-24] MEDS: IV NS 0.9% 1,000 ML IV PRN (20:08)
[2019-05-24] MEDS: ENOXAPARIN SODIUM 40 MG/0.4 ML DISP.SYRIN SQ SCH (20:09)
[2019-05-24 21:08] VITALS: BP 169/77
[2019-05-24] MEDS: ARIPIPRAZOLE 5 MG TABLET PO SCH (21:11)
[2019-05-24] MEDS: *INSULIN REGULAR(HUMULIN R)HUM 100 UNIT/ML VIAL SQ PRN (21:16)
--- NOTE | 2019-05-24 21:20 | NUR ---
MS RN NOTES: PT VERBALIZING THAT SHE IS NOT IN ANY PAIN RIGHT NOW BUT SHE FEELS LIKE SHE IS GOING NUMBER 2. WILL CONTINUE TO MONITOR BLOOD PRESSURE IS ELEVATED AT THIS TIME. Addendum: 05/25/19 at 0517 by KEVIN DAVIS RN OFFERED TO CHANGE WOUND DRESSING ON JOLIE LOWER LEGS. PT REFUSED AND SAID IT WAS ALREADY DONE. NOTED THAT BOTH BILATERAL WOUND DRESSINGS ARE KEPT CLEAN AND DRY. WILL CONTINUE TO MONITOR.
[2019-05-24 23:28] VITALS: BP 155/71
[2019-05-25 05:51] LABS: CALCIUM, SERUM 9.1 mg/dL (8.5-10.1); CREATININE 1.3 mg/dL (0.6-1.3); POTASSIUM 5.5 mmol/L (3.5-5.1)
[2019-05-25] MEDS ORDERED: VANCOMYCIN 1 GM in IV D5W 250 ML IV SCH (06:00)
[2019-05-25] MEDS ORDERED: VANCOMYCIN 1 GM VIAL ONE (06:13)
[2019-05-25] MEDS: INSULIN REGULAR, HUMAN 100 UNIT/ML 3 ML VIAL SQ PRN ×3 (06:28→17:36)
--- NOTE | 2019-05-25 06:28 | NUR ---
MS RN NOTES: HAD TO OVERRIDE VANCO. NO VANCO AVAILABLE AND TROUGH WAS 18. ALSO BLOOD SUGAR THIS AM WAS 142. 2 UNITS OF INSULIN WAS ADMINISTERED. PT GIVEN PUDDING REQUESTED. WILL CONTINUE TO MONITOR.
[2019-05-25] MEDS: BLOOD SUGAR DIAGNOSTIC 1 EACH STRIP VI SCH ×3 (06:38→17:52)
--- NOTE | 2019-05-25 06:41 | NUR ---
MS RN CLOSING NOTES: ALL NEEDS WERE ATTENDED AND ANTICIPATED FOR. PT KEPT CLEAN, DRY, AND COMFORTABLE. PT TURNED AND REPOSITIONED Q2HRS. PT HAS GUSTAVO MIDLINE AND IS BEING INFUSED WITH VANCO AT 250ML/HR. BARRETO CATH REMAINS IN PLACE. OUTPUT WAS 800ML. WOUND TX PERFORMED ORDERED. PT ON ROOM AIR AND IN HIGH PRE[employer]ON'S WATCHING TELEVISION AT THIS TIME. PT ANTICIPATING BREAKFAST. BED KEPT IN LOW, LOCKED POSITION, AND SIDE RAILS X 3 UP. WILL ENDORSE TO AM NURSE FOR DYLLAN.
[2019-05-25 08:00] VITALS: BP 154/69
--- NOTE | 2019-05-25 08:00 | NUR ---
MS RN AM NOTES: PT ALERT AND AWAKE,VERBALLY RESPONSIVE. KEPT CLEAN, DRY, AND COMFORTABLE. PT TURNED AND REPOSITIONED Q2HRS. PT HAS GUSTAVO MIDLINE AND IS BEING INFUSED WITH NS AT 50ML/HR. BARRETO CATH REMAINS IN PLACE. DRAINING YELLOW URINE OUTPUT. WOUND TX PERFORMED ORDERED. PT ON ROOM AIR AND IN HIGH PRESTON'S WATCHING TELEVISION AT THIS TIME. PT ATE GOOD BREAKFAST. BED KEPT IN LOW, LOCKED POSITION, AND SIDE RAILS X 3 UP. CALL LIGHT PLACED WITHIN REACH.
[2019-05-25] MEDS: DIVALPROEX SODIUM 250 MG TABLET.DR PO SCH ×3 (08:13→17:34)
[2019-05-25] MEDS: LACTOBACILLUS RHAMNOSUS GG 1 EACH CAP.SPRINK PO SCH ×2 (08:13→17:34)
[2019-05-25] MEDS: GEMFIBROZIL 600 MG TABLET PO SCH ×2 (08:13→17:34)
[2019-05-25] MEDS: LEVOTHYROXINE SODIUM 50 MCG TABLET PO SCH (08:13)
[2019-05-25] MEDS: MAGNESIUM OXIDE 400 MG TABLET PO SCH ×2 (08:13→17:34)
[2019-05-25] MEDS: BENZTROPINE MESYLATE (1 MG) 1 MG TABLET PO SCH (08:13)
[2019-05-25] MEDS: DIGOXIN 0.25 MG TABLET PO SCH (08:13)
[2019-05-25] MEDS: Z GUARD REMEDY 2 OZ OINT TP PRN (08:13)
[2019-05-25] MEDS: ALLOPURINOL 100 MG TABLET PO SCH (08:13)
[2019-05-25] MEDS: ASPIRIN EC 81 MG TABLET.DR PO SCH (08:13)
[2019-05-25] MEDS: ASCORBIC ACID 500 MG TABLET PO SCH (08:13)
[2019-05-25] MEDS: INSULIN GLARGINE, 100 UNIT/ML CARTRIDGE SQ SCH ×2 (08:14→17:35)
[2019-05-25] MEDS: HYDROGEL DRESSING 90 GM TUBE TP SCH (08:33)
[2019-05-25] MEDS: FLUTICASONE/VILANTEROL 1 EACH BLST.W.DEV IH SCH (08:33)
[2019-05-25] MEDS: CLOTRIMAZOLE/BETAMETASONE DIPROPIONATE 15 GM TUBE TP SCH ×2 (08:34→17:51)
[2019-05-25] MEDS: MUPIROCIN OINT 2% 22 GM TUBE SCH (08:34)
[2019-05-25] MEDS: CLOTRIMAZOLE 1% 15 GM TUBE TP SCH ×2 (08:34→17:50)
[2019-05-25] MEDS: NEOMY SULF/BACITRAC ZN/POLY 15 GM TUBE TP SCH (08:34)
--- NOTE | 2019-05-25 10:00 | NUR ---
DR RUSSO CAME TO SEE PT AND ORDERED FOR DC TO SNF AND FOLLOW UP WITH INFECTIOUS DISEASE DR TILLMAN FOR CONTINUATION OF IV ATB THERAPY.
--- NOTE | 2019-05-25 10:05 | NUR ---
INFORMED DR RUSSO OF PT'S HIGH K+ 5.5 WITH NO NEW ORDER.
--- NOTE | 2019-05-25 15:49 | NUR ---
PT'S ADVOCATE,MARIAM PATINO, [facility] LIFE NCR OPERATOR,TOBACCO DRIER OPERATOR TOLL FREE . MARIAM AND PT HERSELF STATED THAT PT'S BROTHER ,TAMANNA KHAN HAS BEEN AND THERESA ADAMSONCITLALY IN [facility] IS AN UNKNOWN PERSON AND WANTS HIM REMOVED IN THE FACE SHEET INFO.MARIAM WANTS TO BE INFORMED IF WHERE WILL THE PT BE DISCHARGED.
--- NOTE | 2019-05-25 15:59 | NUR ---
LIN'S CELL PHONE NUMBER
[2019-05-25 16:00] VITALS: BP 160/90
[2019-05-25] MEDS: CEFEPIME 2 GM in IV D5W 100 ML IV SCH (17:26)
--- NOTE | 2019-05-25 18:30 | NUR ---
CALLED REPORT TO [facility] NETTLES AND SPOKE TO LYLE,RN SAYING THAT PT WILL BE IN ROOM 1A AND MENTIONED TO LYLE THAT PT WILL BE ON CONTACT ISOLATION FOR MRSA NARES AND BLE WOUNDS.INSTRUCTED LYLE THAT PT WILL CONTINUE HIS IV ATB MAXIPIME AND VANCO IV FOR 10 MORE DAYS AND REPORTED THE TIME OF THE IV ATBS LAST DOSES GIVEN HERE IN [facility]. WOUND TX DONE ORDERED.BARRETO CATHETER, [facility]LINE [facility] LT AC [facility]OCK WILL REMAIN INTACT FOR CONTINUATION OF ATB THERAPY.PT ABLE TO MOVE BUE WITHOUT DIFFICULTY. PT DENIES ANY PAIN OR DISTRESS.TURNED AND REPOSITIONED FOR COMFORT.PT MADE 2 XL BM AND GOOD PERICARE DONE. CALLED DR TILLMAN AND SPOKE TO ALLISON OF DOCTOR'S EXCHANGE OF THE FACILITY WHERE PT WILL BE DISCHARGED. CALLED MARIAM PATINO,PT'S PERSONAL CLOCK MAKER AND MADE AWARE OF [facility] WHERE PT WILL BE DISCHARGED.
--- NOTE | 2019-05-25 19:20 | NUR ---
AMBULANCE CLINICAL SPECIALTY REP ARRIVED TO NUTRITIONALIST PT BUT HAS TO LEAVE AND SEND ANOTHER AMBULANCE WITH BARIATRIC GURNEY.ENDORSED TO NIGHT NURSE CARE FOR PT'S DISCHARGE.PT HAS STABLE V/S.
[2019-05-25 20:00] VITALS: BP 148/68
--- NOTE | 2019-05-25 20:10 | NUR ---
RN OPENING NOTES RECEIVED PATIENT AWAKE, RESTING IN BED COMFORTABLY. PATIENT IS A/O X 3. PATIENT IS AWAITING DISCHARGE TO [facility], ROOM 1A. [facility] IS ON THE WAY WITH A BIGGER GURNEY TO TRANSFER PATIENT, SINCE PATIENT IS 348 LBS. [facility] #- . WILL FOLLOW UP WITH AMBULANCE. NO SIGNS OF RESPIRATORY DISTRESS. DENIES SHORTNESS OF BREATH. PATIENT HAS A BARRETO, DRAINING YELLOW URINE OUTPUT. IV SITE INTACT AND PATENT, WITH NS RUNNING AT 50 ML/HR. DENIES PAIN AT THIS TIME. SAFETY PRECAUTIONS IMPLEMENTED; CALL LIGHT WITHIN REACH, BED IN LOWEST POSITION, BED LOCKED, SIDE RAILS UP X2. WILL CONTINUE TO MONITOR PATIENT.
[2019-05-25 20:23] VITALS: BP 148/68
[2019-05-25 20:26] VITALS: BP 148/68
[2019-05-25 20:45] VITALS: BP 152/72
--- NOTE | 2019-05-25 22:01 | NUR ---
APPLIED MARINE PHYSICS PROFESSOR NOTES PATIENT WAS DISCHARGED AT 2044 VIA [facility]. VITALS UPON DISCHARGE: BP 152/72, PULSE 84, RESPIRATIONS 20, TEMP 98.4, PULSE O2 95% ON RA. ALL PAPERWORK AND PHOTOS COMPLETED BY AM RN. PAPERWORK SIGNED. PATIENT STABLE UPON DISCHARGE.
== END 2019-05-25 20:45 | DRG 673 ==
LOC: ER 14:13 → MEDSG2 16:27
PROVIDERS: ADMIT Nurse Practitioner Acute Care
PROC: 0JB70ZZ Excision of Back Subcutaneous Tissue and Fascia, Open Approach (ICD-10-PCS; principal; 2019-05-20)
PROC: 05H533Z Insertion of Infusion Device into Right Subclavian Vein, Percutaneous Approach (ICD-10-PCS; 2019-05-21)
DX: N17.0 Acute kidney failure with tubular necrosis (principal); L89.153 Pressure ulcer of sacral region, stage 3; L89.154 Pressure ulcer of sacral region, stage 4; N39.0 Urinary tract infection, site not specified; L03.115 Cellulitis of right lower limb; I50.32 Chronic diastolic (congestive) heart failure; E44.0 Moderate protein-calorie malnutrition; D68.59 Other primary thrombophilia; E87.1 Hypo-osmolality and hyponatremia; I13.0 Hypertensive heart and chronic kidney disease with heart failure and stage 1 through stage 4 chronic kidney disease, or unspecified chronic kidney disease; Z68.43 Body mass index [BMI] 50.0-59.9, adult; I87.333 Chronic venous hypertension (idiopathic) with ulcer and inflammation of bilateral lower extremity; L97.829 Non-pressure chronic ulcer of other part of left lower leg with unspecified severity; L97.819 Non-pressure chronic ulcer of other part of right lower leg with unspecified severity; L03.116 Cellulitis of left lower limb; E87.5 Hyperkalemia; E03.9 Hypothyroidism, unspecified; E11.40 Type 2 diabetes mellitus with diabetic neuropathy, unspecified; E11.22 Type 2 diabetes mellitus with diabetic chronic kidney disease; E66.01 Morbid (severe) obesity due to excess calories; E86.1 Hypovolemia; L30.4 Erythema intertrigo; Z87.891 Personal history of nicotine dependence; Z90.49 Acquired absence of other specified parts of digestive tract; Z79.4 Long term (current) use of insulin; M19.90 Unspecified osteoarthritis, unspecified site; N18.9 Chronic kidney disease, unspecified; Z86.14 Personal history of Methicillin resistant Staphylococcus aureus infection; J44.9 Chronic obstructive pulmonary disease, unspecified; E88.09 Other disorders of plasma-protein metabolism, not elsewhere classified; M10.9 Gout, unspecified; L98.8 Other specified disorders of the skin and subcutaneous tissue; L89.890 Pressure ulcer of other site, unstageable; Z22.322 Carrier or suspected carrier of Methicillin resistant Staphylococcus aureus; B96.1 Klebsiella pneumoniae [K. pneumoniae] as the cause of diseases classified elsewhere; F31.9 Bipolar disorder, unspecified; E11.51 Type 2 diabetes mellitus with diabetic peripheral angiopathy without gangrene; Z90.710 Acquired absence of both cervix and uterus
CPT/HCPCS: 36415; 36569; 71045-TC; 80048-TC; 80053-TC; 80061-TC; 80076-TC; 80202-TC; 81000-TC; 82962-TC; 83605-TC; 83735-TC; 83880; 84100-TC; 84439-TC; 84443-TC; 84484-TC; 85025-TC; 85730-TC; 87040-TC; 87070-TC; 87081-TC; 87086-TC; 87186-TC; 93970-TC; 97110-TC; 97112-TC; 97116-TC; 97530-TC; A6248; A6403; G0378; J0692; J0696; J1650; J1815; J2405; J3370; J7030; J7060